=== PATIENT | male | born 1960 | race Caucasian/White ===

== ENCOUNTER 2020-12-18 15:21 | Emergency (ER) | payer BC, SELFPAY ==
[2020-12-18 15:22] VITALS: BP 119/78; PULSE 104; RESP 18; TEMP 36.8; O2SAT 98; BMI 37.2
--- NOTE | 2020-12-18 15:40 | EKG12_ITS ---
Test Reason : Blood Pressure : / mmHG Vent. Rate : 086 BPM Atrial Rate : 086 BPM P-R Int : 138 ms QRS Dur : 096 ms QT Int : 422 ms P-R-T Axes : 030 -55 064 degrees QTc Int : 504 ms Normal sinus rhythm Possible Left atrial enlargement Left anterior fascicular block Left ventricular hypertrophy Prolonged QT Abnormal ECG Confirmed by HERNAN MEIER, MATTHEW ([id number]), editorial clerk LYNDA RODRÍGUEZ ([id number]) on 12/20/2020 9:00:10 AM Referred By: REX Confirmed By:MATTHEW BECERRA MD
--- NOTE | 2020-12-18 15:40 | ED.VISSUMM ---
- ER Visit Summary Date of Service: 12/18/20 Chief Complaint: Nausea with generalized malaise and fatigue History of Present Illness: The patient is a 60 M Struve anxiety. Patient recently relocated from [place] to this area. Has been treated for a sinus infection after seeing a physician at the [facility]. States he just has not felt well. He denies any vomiting or diarrhea. Has had mild nausea. Subjectively felt like has had a fever. He denies any cough or shortness of breath. No abdominal pain or dysuria. Currently is on Augmentin twice daily for possible sinusitis. Physical Examination: Middle-aged male no acute distress vital signs stable afebrile. Pulse ox 90% on room air no signs hypoxia. HEENT exam frontal nicely sinuses are nontender. Moist mucous membranes. Posterior pharynx unremarkable. Right ear unremarkable left obscured by wax. Neck nontender. No lymphadenopathy. Lungs clear to auscultation bilaterally. Heart regular rhythm no murmur. Abdomen is soft and nontender normal bowel sounds no peritoneal signs. Patient is moving all 4 extremities. Calves are nontender without edema or cords. Neurologically is awake alert with no focal motor deficits. Back nontender. Test Results: Chest x-ray portable 1 view interpreted by myself shows no acute abnormality. Normal cardiac silhouette mediastinum. No infiltrate. Radiologist read the film and agrees. EKG normal sinus rhythm rate 86 no acute signs of GA or ischemia. CBC normal white count 9. Hemoglobin 15. No bands. Electrolytes unremarkable other than potassium of 3.0. Normal gap normal creatinine. Normal blood sugar. Liver enzymes normal. Repeat exam patient is doing well at 4:48 PM. He had I went over all his test results. Emergency Department Course and Treatment: Middle-aged male with some mild nausea and fatigue. Exam is basically benign. At least at this time I do not have a strong suspicion that he has a significant sinusitis. That may have improved with his antibiotic treatment. Due to his fatigue I am going to obtain screening labs. Treatment Plan: I instructed him he could stop his antibiotic. He may choose to finish it. Otherwise outpatient follow-up. Disposition: Discharge Impression: Acute fatigue uncertain etiology This note was generated with [employer] dictation software. It may contain incorrect words, spelling, and punctuation that were not noted in review of the chart prior to signing ED Disposition - Plan for ED Patient: Referrals: [facility] Doctor,Out of [Primary Care Provider] -
[2020-12-18 15:41] VITALS: BP 119/78; PULSE 104; RESP 18; TEMP 36.8; O2SAT 98
[2020-12-18 15:55] LABS: Absolute Lymphocyte Count 1.55 X10^3/uL (0.83-4.51); Absolute Neutrophil Count 6.6 X10^3/uL (2.0-7.7); Basophil# 0.04 X10^3/uL; Basophil% 0.4 % (0-1); Eosinophil# 0.51 X10^3/uL; Eosinophils% 5.4 % (0-5); Hematocrit 43.8 % (40-54); Lymphocyte # 1.55 X10^3/ul (4.0); Lymphocyte % 16.5 % (19-41); Mean Corp Hgb Conc 34.2 g/dL (32-36); Mean Corpuscular Hgb 29.4 pg (27.0-32.0); Mean Corpuscular Volume 85.9 fL (80-94); Mean Platelet Vol. 8.5 fl (6.2-12.0); Monocyte# 0.68 X10^3/uL; Monocyte% 7.3 % (0-10); NRBC Flagged by Analyzer 0 % (0-5); Neutrophil # 6.56 X10^3/uL (2.7-7.7); Neutrophil % 70.1 % (47-70); POSITIVE MORPHOLOGY YES; Platelet Count 273 K/mm3 (150-450); RBC Distribution Width CV 12.5 % (11.6-14.6); RBC Distribution Width SD 39.6 fl (35.1-43.9); White Blood Count 9.4 K/mm3 (4.4-11.0)
[2020-12-18 16:16] LABS: ALB/GLOB Ratio 0.7 RATIO (0.9-2.4); AST(SGOT) 24 U/L (15-37); Alanine Aminotransfer ALT/SGPT 34 U/L (16-61); Albumin, Serum 3.1 g/dL (3.2-5.0); Alkaline Phosphatase 67 U/L (45-117); Anion Gap 7 (5-15); BUN 15 mg/dL (7-18); Calcium,Total 8.6 mg/dL (8.5-10.1); Chloride 101 mmol/L (98-107); Creatinine, Serum 1.15 mg/dL (0.70-1.30); Differential Indicated SCAN CRITERIA MET; EST Glomerular Filtration Rate 69 mL/min (>60); Est Glom Filt Rate - Afr Amer 84 mL/min (>60); Estimated Creatinine Clearance 81.41 ml/min; Globulin 4.5 g/dL (2.2-4.2); Glucose 102 mg/dL (74-106); Protein, Total 7.6 g/dL (6.4-8.2); Sodium Level 137 mmol/L (136-145)
[2020-12-18 16:17] LABS: Differential Comment SCANNED; Reactive Lymphocyte 1+
--- NOTE | 2020-12-18 16:22 | RAD_ITS ---
STUDY: X-RAY CHEST REASON FOR EXAM: Male, 60 years old. weakness TECHNIQUE: Frontal view of the chest COMPARISON: None. FINDINGS: The lungs are clear and expanded. There is no demonstrated pleural abnormality. Normal size heart. Normal mediastinum and demi. Normal visualized pulmonary arteries. Normal visualized aortic arch and descending thoracic aorta. Normal visualized thoracic spine. Normal visualized ribs, clavicles, and shoulders. There is no demonstrated abnormality of the visualized soft tissue structures of the upper abdomen. RAD/Chest 1 View (Portable) IMPRESSION: Normal x-ray examination of the chest. Electronically Signed: Ro Ervin MD at 16:45 EDT Tel , Service support ,
--- NOTE | 2020-12-18 16:56 | ED.DEP ---
ED Disposition - Plan for ED Patient: Disposition: Home or Assisted Living Referrals: Dennis Marie MD [STAFF PHYSICIAN] - 1-2 Weeks Armida Riley MD [STAFF PHYSICIAN] - 1-2 Weeks Additional Instructions: Your exam and all your lab work, chest x-ray and EKG were normal today. Except your potassium was just a little low at 3.0. Use a multivitamin or increase your fruit and vegetable intake and your potassium should come up. Follow-up with one of the 2 local primary care physicians. Return if you are feeling worse. Your symptoms may be from the current antibiotic you are on Augmentin. I think it would be reasonable to stop it at this time.
[2020-12-18 17:12] VITALS: BP 145/95; PULSE 87; RESP 16; O2SAT 99
== END 2020-12-18 17:12 | disposition home or self-care (01) ==
LOC: ED 17:07
PROVIDERS: Emergency Provider Emergency Medicine
DX: R53.1 Weakness (principal); R53.81 Other malaise; F41.9 Anxiety disorder, unspecified; Z79.899 Other long term (current) drug therapy
CPT/HCPCS: 71045; 80053; 85025; 93005; 99283

== ENCOUNTER → 2021-01-03 15:33 | Outpatient (CLI) | payer BC, SELFPAY ==
[2020-12-18 15:22] VITALS: BMI 37.2
[2021-01-03 18:09] LABS: Absolute Lymphocyte Count 1.96 X10^3/uL (0.83-4.51); Absolute Neutrophil Count 3.2 X10^3/uL (2.0-7.7); Basophil# 0.03 X10^3/uL; Basophil% 0.5 % (0-1); Eosinophil# 0.27 X10^3/uL; Eosinophils% 4.5 % (0-5); Hematocrit 42.1 % (40-54); Lymphocyte # 1.96 X10^3/ul (4.0); Lymphocyte % 32.9 % (19-41); Mean Corp Hgb Conc 33.3 g/dL (32-36); Mean Corpuscular Hgb 29.5 pg (27.0-32.0); Mean Corpuscular Volume 88.6 fL (80-94); Mean Platelet Vol. 8.9 fl (6.2-12.0); Monocyte# 0.47 X10^3/uL; Monocyte% 7.9 % (0-10); NRBC Flagged by Analyzer 0 % (0-5); Neutrophil # 3.21 X10^3/uL (2.7-7.7); Platelet Count 254 K/mm3 (150-450); RBC Distribution Width CV 13.3 % (11.6-14.6); RBC Distribution Width SD 42.4 fl (35.1-43.9); Red Blood Count 4.75 M/mm3 (4.6-6.2)
[2021-01-03 18:27] LABS: ALB/GLOB Ratio 1.1 RATIO (0.9-2.4); AST(SGOT) 13 U/L (15-37); Alanine Aminotransfer ALT/SGPT 28 U/L (16-61); Albumin, Serum 3.7 g/dL (3.2-5.0); Alkaline Phosphatase 82 U/L (45-117); Anion Gap 7 (5-15); BUN 13 mg/dL (7-18); BUN/Creat Ratio 11.3 RATIO (10-20); Calcium,Total 9.1 mg/dL (8.5-10.1); Chloride 105 mmol/L (98-107); Creatinine, Serum 1.15 mg/dL (0.70-1.30); EST Glomerular Filtration Rate 69 mL/min (>60); Est Glom Filt Rate - Afr Amer 84 mL/min (>60); Globulin 3.4 g/dL (2.2-4.2); Glucose 131 mg/dL (74-106); Potassium 3.5 mmol/L (3.5-5.1); Protein, Total 7.1 g/dL (6.4-8.2); Sodium Level 139 mmol/L (136-145)
[2021-01-05 10:08] LABS: Hemoglobin A1c 5.4 % (3.8-5.6)
== END ==
PROVIDERS: PCP Family Medicine; Referring Provider Family Medicine; Visit Provider Family Medicine
DX: E66.9 Obesity, unspecified (principal); R73.09 Other abnormal glucose
CPT/HCPCS: 36415; 80053; 83036; 85025

== ENCOUNTER 2021-01-11 14:49 | Emergency (ER) | payer BC, SELFPAY ==
[2021-01-11 14:50] VITALS: BP 152/85; PULSE 105; RESP 15; TEMP 36.4; O2SAT 97; BMI 34.2
--- NOTE | 2021-01-11 15:25 | VDUE_ITS ---
Reason For Study: Swelling, PICC line Right Proximal Right jugular vein is spontaneous, widely patent, phasic, with no intraluminal echogenicity noted. PICC Line noted Rt distal Subclavian V no color flow noted, unable to assess with compression Rt AxillaryV is dilated and non compressible consistent with acute DVT Rt CephalicV from wrist to elbow is dilated and non compressible consistent with acute SVT Rt BasilicV appears partially compressible with thrombus around PICC line. Right Lower Arm Right radial vein is compressible. Right ulnar vein is compressible. Right Arm Right brachial vein is compressible. Patient Safety Prelim given to Dr. Buck. VL/Venous Duplex US, Unilateral Interpretation Summary Right upper extremity PICC line associated with superficial thrombophlebitis of the basilic vein with visible thrombus and acute deep venous thrombosis of the right axillary an d distal subclavian vein. Patent and compressible right jugular vein. Ordering Physician: Kelby Buck Referring Physician: Per Truong Performed By: She Trevino, KEYLA, RVT ?
--- NOTE | 2021-01-11 15:33 | ED.DCSUM_ITS ---
History of Present Illness Chief Complaint: Upper Extremity Injury Informant: Patient Narrative: 60-year-old male presents with concern for right upper extremity swelling. Patient has had a PICC line in place for 15 days to treat a spinal herpes infection. Has been on acyclovir. Was seen by his infectious disease physician today who noted that his right upper extremity is swollen. Patient states that his physician is okay to switch him to oral medication but wanted to get his arm checked out. Denies any fever, chills, numbness, tingling. Past Medical History - Allergies and Home Meds Allergies/Adverse Reactions: Allergies No Known Allergies Allergy (Verified 12/18/20 15:22) Primary Care Physician: Per Truong MD [Primary Care Provider] - Prior records reviewed: Yes Past Medical History: - - anxiety Surgical History: - - MRSA in right foot Lives: Spouse/ Significant Other Smoking Status: Current some day smoker Alcohol: Occasional Drugs: None Review of Systems General: Denies: Chills, Fever, Sweats Eyes: Denies: Visual changes - bilaterally, Diplopia ENT: Denies: Rhinorrhea, Sore throat Cardiovascular: Denies: Chest pain, Palpitations Respiratory: Denies: Dyspnea, Cough, Dyspnea on exertion Gastrointestinal: Denies: Abdominal pain, Nausea, Vomiting, Diarrhea, Melena, Hematochezia Genitourinary: Denies: Dysuria, Hematuria, Frequency Musculoskeletal: Reports: Swelling. Denies: Back pain, Extremity Pain Skin: Denies: Rash, Wounds Neurological: Denies: Headache, Weakness, Numbness Physical Exam Vital Signs/Narrative: Vital Signs Temp Pulse Resp BP Pulse Ox 01/11/21 14:50 97.5 F L 105 H 15 152/85 H 97 General: Well nourished, Well developed, No Acute Distress Head: Normocephalic, Atraumatic Eyes: Perrl, EOMI ENT: Moist mucous membranes, No rhinorrhea Neck: Supple, Nontender Cardiovascular: Regular rate, Regular rhythm, No murmurs Respiratory: No distress, CTA bilaterally, Chest nontender Abdomen: Soft, Nontender, Nondistended, Normal bowel sounds Back: Nontender, Normal Inspection Extremities: Nontender, - - Slightly edematoius RUE. PICC line in place without surrounding erythema. Skin: Normal color, No rash Neurological: Alert, Oriented x3, Cranial nerves II-XII grossly intact, Normal Strength, Normal Sensation Psychological: Normal affect, Normal Mood Diagnostic/Tx/Re-eval - Medical Decision Making Patient appears well and nontoxic. Right upper extremity DVT of the axillary vein with proximal subclavian involvement. Patient will be given Eliquis and t he PICC line will be removed. Will be placed on Eliquis and follow-up with primary care provider. Asked to return for new or worsening symptoms. Stable at time of discharge. Impression: 1. DVT right upper extremity ED Disposition - Plan for ED Patient: Disposition: Home or Assisted Living Instructions: Deep Vein Thrombosis Prescriptions: Apixaban [Eliquis] 5 mg PO BID #74 tablet Prescription Printed Referrals: Per Truong MD [Primary Care Provider] - 2 Days
[2021-01-11] MEDS: APIXABAN 5 MG TABLET 10 MG PO (17:23)
== END 2021-01-11 17:37 | disposition home or self-care (01) ==
PROVIDERS: Emergency Provider Emergency Medicine; PCP Family Medicine
DX: I82.621 Acute embolism and thrombosis of deep veins of right upper extremity (principal); I80.8 Phlebitis and thrombophlebitis of other sites; F17.200 Nicotine dependence, unspecified, uncomplicated
CPT/HCPCS: 93971; 99282

== ENCOUNTER → 2021-05-01 09:42 | Outpatient (CLI) | payer BC, SELFPAY ==
[2021-04-26 11:26] VITALS: BMI 34.2
--- NOTE | 2021-05-01 09:46 | US_ITS ---
INDICATION: SACRAL RADICULITIS EXAMINATION: Ultrasound US Post Void Residual Urine/Bladder TECHNIQUE: Haque scale and color doppler imaging was performed of the urinary bladder. COMPARISON: None. FINDINGS: No stones, masses, or wall thickening. Pre-void volume is 833. Post-void volume is 84. Post-void residual is 10%. Bilateral ureteral jets are identified. US/Post Void Residual Bladder IMPRESSION: Negative bladder ultrasound. Electronically Signed: Per Ramos DO at 11:21 EDT Tel , Service support ,
== END ==
PROVIDERS: PCP Family Medicine; Referring Provider Family Medicine; Visit Provider Family Medicine
DX: M54.18 Radiculopathy, sacral and sacrococcygeal region (principal)
CPT/HCPCS: 51798

== ENCOUNTER 2021-06-20 10:00 | Outpatient (RCR) | payer BC, SELFPAY ==
[2021-04-26 11:26] VITALS: BMI 34.2
--- NOTE | 2021-05-03 13:36 | HP.PTEVAL_ITS ---
Patient's Visit Information ZORAN HAYNES is a 61 year old M referred to Physical Therapy by Dr. Per Truong MD with a diagnosis of ELSBERG SYNDROME, SACRAL RADICULITIS. Date of Evaluation: 05/03/21 Physical Therapist: Vida Coley PT, Cert MDT - Visit Plan Frequency: 2-3x /Week Duration: 4-6 Weeks Plan: GAIT TRAINING WITH EMPHASIS ON SAFETY AND MECHANICS. FOCUS ON LLE STRETCHING AND L ANKLE STRETCHING AND STRENGTHEING. POSTURE CORRECTION/STRENGTHENING, INSTRUCTION IN APPROPRIATE BODY MECHANICS AND ACTIVITY MODIFICATIONS. DLS STARTING WITH A NEUTRAL SPINE PROGRESSING ROM TOLERATED. NINA LE ROM, STRETCHING AND STRENGTHENING. HEP INSTRUCTION. 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 A LOT OF WALKING. FACILITY IS ABOUT [place] [address]. Disability: NO. Present symptoms: I DON'T REALLY HAVE PAIN I JUST HAVE A LOSS OF MUSCLE STRENGTH IN THE BACK OF MY LEGS. STATES HE CAN'T WALK ON HIS L HEEL AND HE RANDOMLY STUMBLES. STATES AT TIMES IT FEELS LIKE HE IS WALKING ON ICE. LEFT THIGH FEELS SUPER TIGHT AND CAN'T PUT SOCK ON LEFT FOOT. Present since: SINCE NOVEMBER 2020. IT WAS REALLY BAD AND BOTH LEGS IN THE BEGINNING WITH A LOT OF STUMBLING. THINGS GOT BETTER AND WENT OFF ANTIBIOTICS AND THEN IT STARTED TO COME BACK ABOUT 6 WEEKS AGO. ANOTHER ROUND OF ANTIBIOTICS AND EVERYTHING FEELS MUCH BETTER EXCEPT THIGHNESS IN LEFT THIGH AND NO FEELING IN LEFT BUTTOCK NO FEELING IN GROIN AREA. Commenced as a result of: INFECTION. PATIENT THINKS THE INFECTION WENT YEARS UNTREATED. STATES HE WILL PROBABLY BE ON ANTIBIOTICS FOR LIFE. WAS IN THE HOSPITAL IN NOVEMBER FOR A WEEK AND ALSO A WEEK LAST YEAR. Symptoms at onset: FLU LIKE SYMPTOMS. Disturbed sleep: SOMETIMES - MUSCLE TIGHTNESS L THIGH. Previous history/Previous treatment: HAVE TRIED MUSCLE RELAXERS BUT THEY DO NOT HELP. MASSAGE HELPS. ANTIBIOTICS. NO BACK SURGERY. NO PHYSICAL THERAPY. NO INJECTIONS. NO CHIROPRACTOR FOR YEARS. TRIED GABAPENTIN BUT STOPPED THAT. Coughing/sneezing/straining: NEGATIVE. Gait: A LOT OF FOOT PAIN. PAIN IN BOTH FEET. WEARS ORHTOTICS. FOOT PAIN X 15 YEARS AGO AND HAS HAD RIGHT FOOT SX. Difficulty initiating urinatin: YES. US SATURDAY THIS WEEK AND GOT GOOD RESULTS. NO LOSS OF BOWEL OR BLADDER CONTROL NOW. NO INCONTINENCE. DID HAVE INCONTINENCE ABOUT A MONTH AFTER FLU LIKE SX'S STARTED AND WAS CONTRIBUTING FACTOR TO GOING TO THE HOSPITAL. Accidents: NO. Unexplained weight loss: NO. Imaging: DECEMBER 2020 A LOT OF X-RAYS AND 3 OR 4 MRI'S OF LOW BACK. RECENT MRI ORDERED BY INFECTIOUS DOCTOR BUT NOT COMPLETED. NEUROLOGY WILBERTO'T PENDING END OF MAY 2021. PMH: ANXIETY. R FOOT SX. OTHER: I HAVE SOME APPREHENSION ABOUT PT BECAUSE UNTIL I HAVE BETTER CONTROL THROUGH MY NERVES I DON'T KNOW WHAT CAN BE ACHIEVED IN PHYSICAL THERAPY. OTHER: PATIENT REPORTS HE DOES NOT HAVE ANY PHYSICIAN RESTRICTIONS. HAS HAD SOME MILD FALLS WHEN GETTING OFF BALANCE BUT NO INJURIES FROM THE FALLS. - Objective Sitting/Standing Posture: POOR. Lordosis: NORMAL TO REDUCED. Lateral shift: NO. Relevant shift: N/A. Active Correction of posture: NE. Other Observations: INDEP TRANSFER SIT TO STAND WITHOUT UE ASSIST BUT DIFFICULT. Motor deficit: RLE: 5/5 EXCEPT HIP 4/5. LLE: 5/5 EXCEPT HIP 4-/5, KNEE FLEX 4-/5, KNEE EXT 4/5, ANKLE DORSIFLEX 2/5, PLANTAR FLEXION 4/5. PATIENT IS ABLE TO WALK ON HIS TOES BUT NOT ON HIS L HEEL. Sensory deficit: DECREASED L LE LATERAL LEG LIGHT TOUCH SENSATION COMPARED TO RIGHT AND PATIENT REPORTS SADDLE ANESTHESIA. ROM deficit: TIGHT NINA HIP FLEXORS, HS'S AND L GASTROC SOLEUS COMPLEX. Reflexes: LE HYPER-RELFEXIA L > RIGHT. DECREASED NINA LE ROM L>R. Dural Signs: NEGATIVE RIGHT LE. POSITIVE LEFT LE. Lumbar mvmt loss: flex - MOD. ext - MOD. R SG - MIREYA. L SG - MOD. PATIENT REPORTS A LOT OF INCREASED LLE TIGHTNESS WITH LUMBAR FLEXION ROM TESTING. Core strength: POOR. Palpation: NO ACUTE LUMBOSACRAL TENDERNESS. TREATMENT: NEUROMUSCULAR REEDUCATION - RETRAINING OF MVMT AND POSTURE FOR SITTING, LYING AND STANDING ACTIVITIES. OTHER: ELSBURG SYNDROME: Elsberg syndrome (ES) is a presumed infectious syndrome consisting of acute or subacute bilateral lumbosacral radiculitis, often accompanied by myelitis confined to the lower spinal cord, and is frequently a manifestation of reactivation, or occasionally, primary herpes simplex virus 2 (HSV2) infection. - Balance/Special Test Scores Oswestry Low Back Score: 0 - Goals Goal 1:: INDEP AND SAFE GAIT ON LEVEL SURFACES AND UP AND DOWN STEPS WITH LEAST ASSISTIVE DEVICES OR BRACING. Goal Time Frame: 4-6 Weeks Goal 2:: IMPROVE NINA LE FUNCTIONAL ROM TO EASE ADLS SUCH DRESSING AND DONING/DOFFING LEFT SHOE AND SOCK. Goal Time Frame: 4-6 Weeks Goal 3:: IMPROVE TRUNK AND NINA LE FUNCTIONAL STRENGTH TO EASE ADLS Goal Time Frame: 4-6 Weeks Goal 4:: PATIENT WILL BE INDEP WITH A HEP FOR CONTINUED IMPROVEMENT ONCE FORMAL PHYSICAL THERAPY CONCLUDES. - Anticipated Interventions Patient/Client Instruction: Educate patient on: Condition, Plan of Care, Risk Factors For the Purpose of:: To improve self management Therapeutic Exercise to Include: Strength training, Balance training, Body mechanics, Postural training, Flexibilty training, Gait and locomotor training, Neuromotor development, In an aquatic setting, Dynamic Lumbar Stabilization For the Purpose of:: To decrease pain, To improve muscle performance and motor function, To increase tolerance to activity/condition/position, To improve ability of physical actions for home/community/work/leisure, To improve gait and locomotor functions Thank you for the opportunity to evaluate your patient. For Medicare and Medicare HMO plans, please review the plan of care and approve it. It will need to be FAXED BACK to us at [phone] for Medicare purposes. For Medicare only, by signing this I certify the plan of care. Please let me know if there are questions or concerns regarding this plan of care. Physician Signature: Date:
--- NOTE | 2021-06-20 11:54 | HP.PTDCSUM ---
It has been my pleasure to treat ZORAN HAYNES referred by Dr. Per Truong MD, with the diagnosis of ELSBERG SYNDROME, SACRAL RADICULITIS for a total of 8 visit(s). Discharge Date: 06/20/21 Please see the following information for a summary of their discharge status. Subjective: REPORTS HE CAN PUT HIS LEFT SOCK ON NOW AND THAT WAS IMPOSSIBLE BEFORE STARTING PT. STATES HIS LEFT LEG FEELS LOOSER. PATIENT REPORTS HE IS READY TO STOP PT AND CONTINUE HIS HEP. BROUGHT HIS HOME INSTRUCTIONS WITH HIM TODAY SO WE CAN GO OVER EVERYTHING. PATIENT REPORTS HE IS PLEASANTLY SURPRISED AT HOW MUCH THERAPY HAS HELPED HIM. LLE Pain Intensity (Out of 10): 5 % Improvement: 80 Objective/Function: PATIENT WAS SEEN TODAY FOR RE-ASSESSMENT OF PROGRESS TOWARD THE SET PT GOALS AND THE NEED FOR FURTHER PHYSICAL THERAPY VS READINESS FOR DISCHARGE. PATIENT HAS DONE REALLY WELL WITH PHYSICAL THERAPY AND WOULD LIKE TO CONTINUE INDEP'LY NOW. UPON EXAM TODAY: INDEP TRANSFER SIT TO STAND WITHOUT UE ASSIST OR DIFFICULTY TODAY. Motor deficit: RLE: 5/5 LLE: 5/5 EXCEPT ANKLE DORSIFLEX 2/5. PATIENT IS ABLE TO WALK ON HIS TOES BUT NOT ON HIS L HEEL. Sensory deficit: NINA LE LIGHT TOUCH SENSATION IS GROSSLY INTACT AND SYMMETRICAL NOW EXCEPT LEFT FOOT. STATES HE THINKS THE NUMBESS IN HIS SADDLE REGION IS GETTING A LITTLE BETTER. ROM deficit: TIGHT NINA HIP FLEXORS, HS'S AND GASTROC SOLEUS COMPLEX'S. Reflexes: LE HYPER-RELFEXIA L > RIGHT. Dural Signs: NEGATIVE NINA LE'S. Lumbar mvmt loss: flex - MIN. ext - MOD. R SG - MOD. L SG - MOD. PATIENT DENIES INCREASED PAIN OR PULLING WITH LUMBAR ROM TESTING TODAY AT EVAL. Core strength: POOR. Palpation: NO ACUTE LUMBOSACRAL TENDERNESS Goal 1:: INDEP AND SAFE GAIT ON LEVEL SURFACES AND UP AND DOWN STEPS WITH LEAST ASSISTIVE DEVICES OR BRACING. Goal Progress: Goal Met Goal 2:: IMPROVE NINA LE FUNCTIONAL ROM TO EASE ADLS SUCH DRESSING AND DONING/DOFFING LEFT SHOE AND SOCK. Goal Progress: Goal Met Goal 3:: IMPROVE TRUNK AND NINA LE FUNCTIONAL STRENGTH TO EASE ADLS Goal Progress: Goal Met Goal 4:: PATIENT WILL BE INDEP WITH A HEP FOR CONTINUED IMPROVEMENT ONCE FORMAL PHYSICAL THERAPY CONCLUDES. Goal Progress: Goal Met Plan: D/C TO HEP. PATIENT AGREEABLE. WILBERTO'TS PENDING WITH PCP TOMORROW - DR. LEWIS. NEUROLOGIST 06/26/21 If there are questions or concerns regarding this patient's physical therapy, please feel free to call me at [phone]. Thank you for the referral of this patient. Sincerely, Vida Coley, PT, Cert MDT Balance/Gait/Functional tests - Balance/Special Test Scores Oswestry Low Back Score: 0
== END 2021-06-20 19:00 | disposition home or self-care (01) ==
LOC: PT 10:00
PROVIDERS: PCP Family Medicine; Referring Provider Family Medicine; Visit Provider Family Medicine
DX: G83.4 Cauda equina syndrome (principal); M53.3 Sacrococcygeal disorders, not elsewhere classified
CPT/HCPCS: 97110; 97162; 97164; 97530

== ENCOUNTER → 2021-07-12 10:10 | Outpatient (CLI) | payer BC, SELFPAY ==
--- NOTE | 2021-07-12 10:11 | MRI_ITS ---
STUDY: MRI LUMBAR SPINE WITH AND WITHOUT CONTRAST REASON FOR EXAM: Male, 61 years old. Myelopathy TECHNIQUE: Standardized fat and water weighted pulse sequences were obtained in the sagittal and axial planes. IV 25 cc dotarem was administered for the contrast portion of the examination. COMPARISON: None FINDINGS: Normal lumbar lordosis. There is no substantial scoliosis. Normal conus medullaris that terminates at the L1. L1-2: There is mild disc space narrowing and endplates spondylosis mild disc bulge and facet arthropathy with mild central canal stenosis. Mild right and mild left foraminal stenosis. L2-3: There is minimal disc space narrowing and endplates spondylosis. Mild disc bulge and facet arthropathy without significant central canal stenosis. Mild right and mild left foraminal stenosis. L3-4: There is mild disc space narrowing and endplates spondylosis mild disc bulge and facet arthropathy with mild central canal stenosis. Mild right and mild left foraminal stenosis. Minimal grade 1 anterolisthesis. L4-5: There is moderate disc space narrowing and endplates spondylosis mild disc osteophyte complex and facet arthropathy with with mild central canal stenosis. Moderate right and mild left foraminal stenosis. L5-S1: There is moderate disc space narrowing and endplates spondylosis moderate disc osteophyte complex and facet arthropathy with mild central canal stenosis. Mild right and moderate left foraminal stenosis. Normal visualized sacral ala. MRI/Spine Lumbar W/WO Contrast IMPRESSION: L4/L5: Moderate right foraminal stenosis. L5/S1: Moderate left foraminal stenosis. Electronically Signed: Martin Euceda MD at 13:01 EDT Tel , Service support ,
== END ==
PROVIDERS: PCP Family Medicine; Referring Provider Psychiatry & Neurology Neurology; Visit Provider Psychiatry & Neurology Neurology
DX: B00.82 Herpes simplex myelitis (principal); G83.4 Cauda equina syndrome; M21.372 Foot drop, left foot; M62.838 Other muscle spasm; M48.061 Spinal stenosis, lumbar region without neurogenic claudication
CPT/HCPCS: 72158; A9575

== ENCOUNTER → 2022-04-12 | Outpatient (CLI) | payer BC, SELFPAY ==
[2022-04-12 18:49] LABS: PSA,Total - Annual Screen 0.34 ng/mL (0.00-4.00)
== END | disposition home or self-care (01) ==
LOC: MFPLAB 16:53
PROVIDERS: PCP Family Medicine; Referring Provider Family Medicine; Visit Provider Family Medicine
DX: Z12.5 Encounter for screening for malignant neoplasm of prostate (principal)
CPT/HCPCS: 36415; 84153; G0103

== ENCOUNTER → 2022-11-22 | Outpatient (CLI) | payer OTHER, SELFPAY ==
[2022-11-22 13:11] LABS: AST(SGOT) 28 U/L (15-37); Alanine Aminotransfer ALT/SGPT 34 U/L (16-61); Albumin, Serum 3.6 g/dL (3.2-5.0); Alkaline Phosphatase 103 U/L (45-117); Anion Gap 5 (5-15); BUN 23 mg/dL (7-18); BUN/Creat Ratio 22.3 RATIO (10-20); Calcium,Total 9.2 mg/dL (8.5-10.1); Chloride 104 mmol/L (98-107); Cholesterol 213 mg/dL (200); Creatinine, Serum 1.03 mg/dL (0.70-1.30); EST Glomerular Filtration Rate 78 mL/min (>60); Est Glom Filt Rate - Afr Amer 95 mL/min (>60); Globulin 3.5 g/dL (2.2-4.2); Glucose 88 mg/dL (74-106); High Density Lipoprotein 39 mg/dL; Potassium 3.8 mmol/L (3.5-5.1); Protein, Total 7.1 g/dL (6.4-8.2); Sodium Level 138 mmol/L (136-145); Thyroid Stim Hormone (TSH) 1.21 uIU/mL (0.358-3.74); Triglycerides 151 mg/dL; Very Low Density Lipoprotein 30 mg/dL (5-40)
[2022-11-22 13:58] LABS: Absolute Lymphocyte Count 1.87 X10^3/uL (0.83-4.51); Absolute Neutrophil Count 3.1 X10^3/uL (2.0-7.7); Basophil# 0.03 X10^3/uL; Basophil% 0.5 % (0-1); Eosinophil# 0.38 X10^3/uL; Eosinophils% 6.3 % (0-5); Hematocrit 47.2 % (40-54); Hemoglobin 15.5 g/dL (13.0-16.5); Lymphocyte # 1.87 X10^3/ul (0.83-4.51); Lymphocyte % 31.1 % (19-41); Mean Corp Hgb Conc 32.8 g/dL (32-36); Mean Corpuscular Hgb 30.6 pg (27.0-32.0); Mean Corpuscular Volume 93.3 fL (80-94); Mean Platelet Vol. 9.3 fl (6.2-12.0); Monocyte# 0.64 X10^3/uL; Monocyte% 10.6 % (0-10); NRBC Flagged by Analyzer 0 % (0-5); Neutrophil # 3.09 X10^3/uL (2.7-7.7); Neutrophil % 51.3 % (47-70); Platelet Count 273 K/mm3 (150-450); RBC Distribution Width CV 12.8 % (11.6-14.6); RBC Distribution Width SD 43.4 fl (35.1-43.9); Red Blood Count 5.06 M/mm3 (4.6-6.2)
== END | disposition home or self-care (01) ==
LOC: MFPLAB 11:21
PROVIDERS: PCP Family Medicine; Referring Provider Family Medicine; Visit Provider Family Medicine
DX: I10 Essential (primary) hypertension (principal)
CPT/HCPCS: 36415; 80053; 80061; 84443; 85025

== ENCOUNTER → 2022-12-27 | Outpatient (CLI) | payer OTHER, SELFPAY ==
--- NOTE | 2022-12-27 18:21 | US_ITS ---
STUDY: ULTRASOUND - URINARY BLADDER REASON FOR EXAM: Male, 62 years old. URINARY RETENTION TECHNIQUE: Ultrasound evaluation of the urinary bladder was performed with real-time and static kendrick-scale imaging. COMPARISON: None. FINDINGS: There is no right UVJ calculus. There is a visualized right ureteral jet. There is no left UVJ calculus. There is a visualized left ureteral jet. The distended volume of the urinary bladder is 218.91 ml. The empty volume of the urinary bladder is 68.64 ml. The bladder wall is within normal limits. The bladder wall measures 3 mm. There is no demonstrated bladder wall mass lesion. There are no demonstrated bladder calculi. US/Post Void Residual Bladder IMPRESSION: Small postvoid residual. Electronically Signed: Juan Jose Burnham MD at 14:16 EDT ,
== END | disposition home or self-care (01) ==
PROVIDERS: PCP Family Medicine; Referring Provider Family Medicine; Visit Provider Family Medicine
DX: R33.9 Retention of urine, unspecified (principal)
CPT/HCPCS: 51798

== ENCOUNTER 2023-01-12 11:55 | Emergency (ER) | payer OTHER, SELFPAY ==
[2023-01-12 11:56] VITALS: BP 144/83; PULSE 83; RESP 16; TEMP 36.6; O2SAT 100; BMI 35.9
--- NOTE | 2023-01-12 12:19 | CT_ITS ---
STUDY: CT ABDOMEN AND PELVIS WITH CONTRAST REASON FOR EXAM: Male, 62 years old. Trauma -- IV PO Contrast RADIATION DOSAGE (If Supplied By Facility): CTDIvol = ( ) mGy, DLP = ( ) mGycm TECHNIQUE: Transaxial images were obtained from the dome of the diaphragm to the symphysis pubis without oral contrast. IV 100mL Isovue-300 was administered. Sagittal and coronal images were reconstructed. This study was timed stamped at 1:02 PM and sent for radiographic interpretation at 1:46 PM Individualized dose optimization techniques were used for this CT. COMPARISON: None. FINDINGS: The visualized lung bases are unremarkable. The visualized portions of the heart are within normal limits. Normal liver. Normal gallbladder and extrahepatic biliary system. Normal spleen. Normal pancreas. Normal bilateral adrenal glands. Normal right kidney. Normal left kidney. There is hypertrophy of the perinephric fat. Normal visualized stomach. Normal small intestine. There is a [id number] amount of stool within the proximal colon. Within the descending colon and sigmoid is decompressed appearance of the bowel loops. There are a few diverticula present without visualized diverticulitis. The appendix is visualized and appears normal. There is minimal calcification of the infrarenal aorta. Normal inferior vena cava. Normal retroperitoneum. Normal urinary bladder. Normal visualized prostate gland. There is edema in the right gluteal superficial soft tissues and the right gluteus muscle. There are diffuse degenerative changes of the visualized lumbar spine. There is multilevel spondylosis especially in the lower thoracic spine. There is disc space narrowing spondylosis. There is right lateral disc osteophyte at each level. At the level of L1-L2 there is slight retrolisthesis is a right lateral disc osteophyte mild neural foramina narrowing minimal central stenosis. At L2-3 there is a broad disc osteophyte mild neural foramina narrowing minimal central stenosis. At L3-L4 there is minimal disc space narrowing and broad disc osteophyte right greater than left with right neural foramina narrowing. There is facet arthropathy mild central stenosis. At L4-L5 there is a broad disc osteophyte moderate neural foramina narrowing mild to moderate central stenosis. There is a small central disc bulge at the level of L5-S1 there is moderate neural foramina narrowing without central stenosis. There is degenerative change of the SI joints. The bilateral inferior superior pubic rami are intact. Bilateral proximal femurs appear to be intact. There is prominent bilateral gynecomastia. CT/Abdomen/Pelvis WITH Contrast IMPRESSION: Bilateral gynecomastia. No visualized intra-abdominal injury. Nonspecific bowel gas pattern. No appendicitis. Soft tissue edema right gluteal soft tissues and in the right gluteal muscle. No visualized fracture. There is multilevel degenerative change of the thoracolumbar spine without evidence of acute loss of height or alignment. Electronically Signed: Siobhan Garcia MD at 14:28 EDT Reading Location ID and State: [facility] / [place] Tel , Service support ,
--- NOTE | 2023-01-12 12:32 | EX.ED.DYSGE1 ---
HPI History of Present Illness Chief Complaint: General Illness Narrative Narrative: H&P by nurse practitioner done separately on individual chart. This was reviewed. Therefore, will not repeat complete history and physical. [facility] Medical History (Updated 01/12/23 @ 17:[address] Khanh Pascual MD) Back problem HTN (hypertension) Neuropathy Home Medications sertraline 50 mg tablet 50 mg PO DAILY 06/26/21 [History Last Taken Unknown] baclofen 10 mg tablet 10 mg PO BID PRN muscle spasm/pain #180 tabs 12/04/21 [Rx Last Taken Unknown] valacyclovir 1 gram tablet 1,000 mg PO BID #180 tabs 12/19/21 [Rx Last Taken Unknown] hydrocodone-acetaminophen 5-325mg 5mg-325mg 1 tab PO Q4H PRN PRN Pain 3 days #10 TABLETS 01/12/23 [Rx Last Taken Unknown] ondansetron 4 mg disintegrating tablet 4 mg PO Q8H PRN PRN Nausea #10 tabs 01/12/23 [Rx Last Taken Unknown] Allergy/AdvReac Type Severity Reaction Status Date / Time No Known Allergies Allergy Verified 01/12/23 11:56 Social History Smoking Status: Current some day smoker tobacco type: cigars per week: 3 Tobacco: How many years used: 5 second hand exposure: No alcohol intake: current alcohol intake frequency: a few times a week substance use type: does not use EXAM Physical Exam Const Vital Signs: 01/12/23 11:56 01/12/23 12:43 Temperature 97.8 F Temperature Source Temporal Pulse Rate 83 Respiratory Rate 16 Respiratory Effort Normal Non-Labored Blood Pressure 144/83 H Blood Pressure Mean 103 Pulse Ox 100 Oxygen Delivery Method Room Air MDM MDM MDM Narrative Medical decision making narrative: I have personally performed a face to face assessment of the patient and have reviewed the WILBERTO Note. I performed a substantive portion of the visit including all aspects of the following. My richardson findings include: History is remarkable for injury that occurred yesterday. Was pinned by machine. He complains of pain in the right flank area, right buttocks and left buttocks and lower abdomen. He states she is more gassy today than yesterday or normal. He denies blood in his urine. He denies shortness of breath. He does report injury to his left forearm. He states he has reactive range of motion without pain. He denies paresthesia, anesthesia motors. Exam is there is soft tissue swelling noted over the left elbow. Is no pain the patient over the lateral medial epicondyle, olecranon process or radial head. Axillary, median, radial and ulnar function intact. Patient has minimal suprapubic discomfort. There is right CVA tenderness noted as well as tenderness in the right buttocks with significant bruising noted right buttocks compared to left. Medical Decision Making CT of the abdomen pelvis with IV contrast was obtained to evaluate for renal injury as well as lower pelvic organ injuries. CBC was obtained to assess H&H and BMP to assess renal function. Patient had a normal BUN and creatinine and GFR October of this year. GFR was 78. Other additions or changes: [None] Lab Data Attestation: I reviewed the patient's lab results. Lab results narrative: CBC is unremarkable comprehensive metabolic panel is remarkable for mild hypokalemia, 3.2. Function is normal. UA is negative. Labs: Laboratory Results - last 24 hr 01/12/23 01/12/23 01/12/23 12:20 12:20 12:37 WBC 8.3 RBC 4.49 L Hgb 14.1 Hct 40.2 MCV 89.5 MCH 31.4 MCHC 35.1 RDW Std Deviation 39.9 RDW Coeff of Mikie 12.3 Plt Count 238 MPV 8.6 Immature Gran % (Auto) 0.100 Neut % (Auto) 65.5 Lymph % (Auto) 20.0 [place] % (Auto) 10.9 H Eos % (Auto) 3.1 Baso % (Auto) 0.4 Absolute Neuts (auto) 5.4 Absolute Lymphs (auto) 1.66 Nucleated RBC % 0 Sodium 137 Potassium 3.2 L Chloride 104 Carbon Dioxide 28.0 Anion Gap 5 BUN 22 H Creatinine 1.16 Estim Creat Clear Calc 76.53 Est GFR (MDRD) Af Amer 82 Est GFR (MDRD) Non-Af 68 BUN/Creatinine Ratio 19.0 Glucose 126 H Calcium 9.4 Total Bilirubin 0.40 AST 29 ALT 33 Alkaline Phosphatase 93 Total Protein 7.0 Albumin 3.6 Globulin 3.4 Albumin/Globulin Ratio 1.1 Lipase 30 Urine Color Yellow Urine Clarity Clear Urine pH 6.5 Ur Specific [place] 1.010 Urine Protein Negative Urine Glucose (UA) Normal Urine Ketones Negative Urine Occult Blood Negative Urine Nitrite Negative Urine Bilirubin Negative Urine Urobilinogen Normal Ur Leukocyte Esterase Negative Urine RBC 0 SEEN Urine WBC 0 SEEN Ur Squamous Epith Cells 0 SEEN Urine Bacteria 0 SEEN Urine Mucus 0 SEEN Radiography Chest X-Ray - ED: - (CT of the abdomen pelvis with IV contrast reviewed. There is no evidence of splenic or liver injury. There is no evidence of renal contusion or fracture. There is evidence of blood right buttocks greater than left. There is no appreciable pelvic fracture noted. Awaiting formal read by radiologi) Diagnostic Testing: Clinical Impression(s) from Imaging Studies Abdomen/Pelvis CT 01/12/23 12:19 IMPRESSION: Bilateral gynecomastia. No visualized intra-abdominal injury. Nonspecific bowel gas pattern. No appendicitis. Soft tissue edema right gluteal soft tissues and in the right gluteal muscle. No visualized fracture. There is multilevel degenerative change of the thoracolumbar spine without evidence of acute loss of height or alignment. Electronically Signed: Siobhan Garcia MD at 14:28 EDT Reading Location ID and State: [facility] / [place] Tel , Service support , Discharge Plan Triage Chief Complaint: General Illness ED Midlevel Provider: Adrian Jiménez ED Provider: Khanh Pascual Dx/Rx/DC Orders Clinical Impression: Lumbar contusion, Hematoma, Abdominal wall contusion, Contusion of flank Instructions: ED Back Contusion, ED Hematoma Prescriptions: New hydrocodone-acetaminophen 5-325 mg tablet 1 tab PO Q4H PRN PRN (Reason: Pain) 3 Days Qty: 10 0RF ondansetron 4 mg tablet,disintegrating 4 mg PO Q8H PRN PRN (Reason: Nausea) Qty: 10 0RF No Action sertraline 50 mg tablet 50 mg PO DAILY baclofen 10 mg tablet 10 mg PO BID PRN (Reason: muscle spasm/pain) Qty: 180 0RF valacyclovir 1 gram tablet 1,000 mg PO BID Qty: 180 0RF Primary Care Provider: Per Truong Referrals: Per Truong MD [Primary Care Provider] - Activity Restrictions/Additional Instructions: Please continue to ice Perform gentle stretching. Disposition Disposition: Home, Self Care Discharge Date/Time: 01/12/23 14:57
[2023-01-12 12:41] LABS: Absolute Lymphocyte Count 1.66 X10^3/uL (0.83-4.51); Absolute Neutrophil Count 5.4 X10^3/uL (2.0-7.7); Basophil# 0.03 X10^3/uL; Basophil% 0.4 % (0-1); Eosinophil# 0.26 X10^3/uL; Eosinophils% 3.1 % (0-5); Hematocrit 40.2 % (40-54); Hemoglobin 14.1 g/dL (13.0-16.5); Lymphocyte # 1.66 X10^3/ul (0.83-4.51); Mean Corp Hgb Conc 35.1 g/dL (32-36); Mean Corpuscular Hgb 31.4 pg (27.0-32.0); Mean Corpuscular Volume 89.5 fL (80-94); Mean Platelet Vol. 8.6 fl (6.2-12.0); Monocyte% 10.9 % (0-10); NRBC Flagged by Analyzer 0 % (0-5); Neutrophil # 5.42 X10^3/uL (2.7-7.7); Neutrophil % 65.5 % (47-70); Platelet Count 238 K/mm3 (150-450); RBC Distribution Width CV 12.3 % (11.6-14.6); RBC Distribution Width SD 39.9 fl (35.1-43.9); Red Blood Count 4.49 M/mm3 (4.6-6.2); White Blood Count 8.3 K/mm3 (4.4-11.0)
[2023-01-12 12:43] LABS: Bacteria 0 SEEN /hpf (None Seen); Mucous, Urine 0 SEEN /hpf (<or=2+); Red Blood Cells-Urine 0 SEEN /hpf (0-5); Squamous Epithelial Cells - UA 0 SEEN /hpf (0-5); White Blood Cells 0 SEEN /hpf (0-5)
[2023-01-12 12:45] LABS: Color, Urine Yellow (Yellow); Glucose, Dipstick Normal (Normal); Ketone-Dipstick Negative (Negative); Leukocyte Esterase-Dipstick Negative /ul (Negative); Nitrite-Dipstick Negative (Negative); Occult Blood-Urine Negative /ul (Negative); Protein-Dipstick Negative (Negative); Urine Bilirubin Dipstick Negative (Negative); Urine Clarity Clear (Clear); Urine Urobilinogen Normal (Normal); Urine pH 6.5 (5.0 - 8.0)
[2023-01-12 12:51] LABS: ALB/GLOB Ratio 1.1 RATIO (0.9-2.4); AST(SGOT) 29 U/L (15-37); Alanine Aminotransfer ALT/SGPT 33 U/L (16-61); Albumin, Serum 3.6 g/dL (3.2-5.0); Alkaline Phosphatase 93 U/L (45-117); Anion Gap 5 (5-15); BUN 22 mg/dL (7-18); Calcium,Total 9.4 mg/dL (8.5-10.1); Chloride 104 mmol/L (98-107); Creatinine, Serum 1.16 mg/dL (0.70-1.30); EST Glomerular Filtration Rate 68 mL/min (>60); Est Glom Filt Rate - Afr Amer 82 mL/min (>60); Estimated Creatinine Clearance 76.53 ml/min; Globulin 3.4 g/dL (2.2-4.2); Glucose 126 mg/dL (74-106); Lipase 30 U/L (13-75); Potassium 3.2 mmol/L (3.5-5.1); Sodium Level 137 mmol/L (136-145)
--- NOTE | 2023-01-12 14:37 | EX.ED.DYSGE1 ---
HPI <GIULIA Vasquez - Last Filed: 01/12/23 14:47> History of Present Illness Chief Complaint: General Illness Narrative Narrative: Patient is a 62-year-old male with history of cauda equina syndrome with ongoing paresthesias down his lower extremities, arthritis, obesity who presents to the emergency department after an accident at work that occurred yesterday. Patient works in a machine shop, he was struck in the lower back upper buttocks, flung forward and struck his lower abdomen. In his left arm. Patient states his left arm, buttocks are sore however okay, patient complains of generalized abdominal pain, feeling worse today. He denies any blood in stool or vomit. Patient states that he is worsening pain with movement. He is here because he is concerned secondary to the trauma he endured yesterday. He denies any other injury. Denies any pain to his lower extremities. [facility] <GIULIA Vasquez - Last Filed: 01/12/23 14:47> [facility] Medical History (Updated 01/12/23 @ 17:[address] Khanh Pascual MD) Back problem HTN (hypertension) Neuropathy Home Medications sertraline 50 mg tablet 50 mg PO DAILY 06/26/21 [History Last Taken Unknown] baclofen 10 mg tablet 10 mg PO BID PRN muscle spasm/pain #180 tabs 12/04/21 [Rx Last Taken Unknown] valacyclovir 1 gram tablet 1,000 mg PO BID #180 tabs 12/19/21 [Rx Last Taken Unknown] hydrocodone-acetaminophen 5-325mg 5mg-325mg 1 tab PO Q4H PRN PRN Pain 3 days #10 TABLETS 01/12/23 [Rx Last Taken Unknown] ondansetron 4 mg disintegrating tablet 4 mg PO Q8H PRN PRN Nausea #10 tabs 01/12/23 [Rx Last Taken Unknown] Allergy/AdvReac Type Severity Reaction Status Date / Time No Known Allergies Allergy Verified 01/12/23 11:56 Social History Smoking Status: Current some day smoker tobacco type: cigars per week: 3 Tobacco: How many years used: 5 second hand exposure: No alcohol intake: current alcohol intake frequency: a few times a week substance use type: does not use ROS <GIULIA Vasquez - Last Filed: 01/12/23 14:47> ROS ED ROS Narrative Constitutional: Negative for fever, chills, weight loss, weakness Eyes: Negative for vision loss, vision change, double vision ENT: Negative for any sore throat, ear pain, congestion Cardiovascular: Negative for any chest pain, tightness, palpitations Respiratory: Negative for any cough, sputum production, hemoptysis, dyspnea, dyspnea on exertion, orthopnea Gastrointestinal: Negative for any vomiting, diarrhea, constipation, blood in stool, blood in vomit. Positive for abdominal pain, nausea : Negative for any urinary frequency, dysuria, retention, blood in urine Muscle skeletal: Negative for any muscle joint pain, stiffness, myalgias, arthralgias, neck pain. Positive for back pain, buttock pain, left arm pain Neurological: Negative for any headache, syncope, numbness or tingling, dizziness Skin: Negative for any rashes, lumps, itching, abrasions, lacerations Psychiatric: Negative for any depression, anxiety, stress, suicidal ideation, homicidal ideation Hematologic: Negative for any easy bruising, excessive bruising, easy bleeding Allergies: Negative for any eczema, hives, rash EXAM <GIULIA Vasquez - Last Filed: 01/12/23 14:47> Physical Exam Narrative Exam Narrative: Vital signs reviewed. HEET: Head normocephalic atraumatic, TMs clear bilaterally. Posterior pharynx is clear, moist mucous membranes. Nares clear bilaterally. Neck: Supple with no lymphadenopathy or tenderness. No signs of meningismus, negative jolt sign. Cardiac: Regular rate and rhythm no murmurs gallops or rubs, equal peripheral pulses bilaterally. Respiratory: Lungs clear to auscultation bilaterally. No chest tenderness. Abdomen: Soft, nontender, nondistended. No abdominal bruit or pulsatile masses. No hepatosplenomegaly Extremities: No peripheral edema, no signs of gross trauma or deformity. Active full range of motion of all extremities. Neuro: Cranial nerves II through XII intact, no focal neurological deficits. Skin: Clean dry and intact with no rash, purpura, petechiae, vesicles or pustules. Backs/flank: No CVA tenderness, no midline spinal tenderness, no deformity. Patient has significant bruising to the upper buttocks both the right and left. Hematoma noted. Psych: Normal mood and affect. No SI, HI or acute psychosis. Const Vital Signs: 01/12/23 11:56 01/12/23 12:43 Temperature 97.8 F Temperature Source Temporal Pulse Rate 83 Respiratory Rate 16 Respiratory Effort Normal Non-Labored Blood Pressure 144/83 H Blood Pressure Mean 103 Pulse Ox 100 Oxygen Delivery Method Room Air <Dr. Khanh Pascual MD - Last Filed: 01/12/23 17:19> Physical Exam Const Vital Signs: 01/12/23 11:56 01/12/23 12:43 Temperature 97.8 F Temperature Source Temporal Pulse Rate 83 Respiratory Rate 16 Respiratory Effort Normal Non-Labored Blood Pressure 144/83 H Blood Pressure Mean 103 Pulse Ox 100 Oxygen Delivery Method Room Air MDM <GIULIA Vasquez - Last Filed: 01/12/23 14:47> MDM Lab Data Labs: Laboratory Results - last 24 hr 01/12/23 01/12/23 01/12/23 12:20 12:20 12:37 WBC 8.3 RBC 4.49 L Hgb 14.1 Hct 40.2 MCV 89.5 MCH 31.4 MCHC 35.1 RDW Std Deviation 39.9 RDW Coeff of Mikie 12.3 Plt Count 238 MPV 8.6 Immature Gran % (Auto) 0.100 Neut % (Auto) 65.5 Lymph % (Auto) 20.0 Gray % (Auto) 10.9 H Eos % (Auto) 3.1 Baso % (Auto) 0.4 Absolute Neuts (auto) 5.4 Absolute Lymphs (auto) 1.66 Nucleated RBC % 0 Sodium 137 Potassium 3.2 L Chloride 104 Carbon Dioxide 28.0 Anion Gap 5 BUN 22 H Creatinine 1.16 Estim Creat Clear Calc 76.53 Est GFR (MDRD) Af Amer 82 Est GFR (MDRD) Non-Af 68 BUN/Creatinine Ratio 19.0 Glucose 126 H Calcium 9.4 Total Bilirubin 0.40 AST 29 ALT 33 Alkaline Phosphatase 93 Total Protein 7.0 Albumin 3.6 Globulin 3.4 Albumin/Globulin Ratio 1.1 Lipase 30 Urine Color Yellow Urine Clarity Clear Urine pH 6.5 Ur Specific [place] 1.010 Urine Protein Negative Urine Glucose (UA) Normal Urine Ketones Negative Urine Occult Blood Negative Urine Nitrite Negative Urine Bilirubin Negative Urine Urobilinogen Normal Ur Leukocyte Esterase Negative Urine RBC 0 SEEN Urine WBC 0 SEEN Ur Squamous Epith Cells 0 SEEN Urine Bacteria 0 SEEN Urine Mucus 0 SEEN Radiography Diagnostic Testing: Clinical Impression(s) from Imaging Studies Abdomen/Pelvis CT 01/12/23 12:19 IMPRESSION: Bilateral gynecomastia. No visualized intra-abdominal injury. Nonspecific bowel gas pattern. No appendicitis. Soft tissue edema right gluteal soft tissues and in the right gluteal muscle. No visualized fracture. There is multilevel degenerative change of the thoracolumbar spine without evidence of acute loss of height or alignment. Electronically Signed: Siobhan Garcia MD at 14:28 EDT , Treatment and Re-Evaluation :: Patient appears generally well, patient vital signs are stable, patient appears nontoxic. Patient presents the emergency department with lower back pain, abdominal pain, buttock pain after an injury that occurred yesterday at work. Patient did receive a full work-up concerning for any intra-abdominal process, such as organ damage, perforation. Patient did receive laboratory values which were grossly unremarkable. Patient's urinalysis was negative for any infection, no blood seen. Patient did receive a negative COVID-19, influenza secondary to feeling fevered. Patient's CT scan of the abdomen pelvis with IV contrast showed bilateral gynecomastia, no visualized intra-abdominal injury. Nonspecific bowel gas pattern, no appendicitis. Soft tissue edema right gluteal soft tissues and in the right gluteal muscle. No visualized fracture. There is also some multilevel degenerative changes of the thoracic or lumbar spine without evidence of acute loss of height or alignment. At this time, believe the patient is safe for discharge. There is no intra-abdominal process. Patient be diagnosed with hematoma, lumbar contusion. He will follow-up outpatient. He will be given a short course of [place] for pain, as well as nausea medicine. I did speak with him as well as the patient's they are happy with the plan of care all questions answered. Patient is stable for discharge <Dr. Khanh Pascual MD - Last Filed: 01/12/23 17:19> [facility] MDM Narrative Medical decision making narrative: Inadvertently documented on separate chart. Please read my individual note. Lab Data Labs: Laboratory Results - last 24 hr 01/12/23 01/12/23 01/12/23 12:20 12:20 12:37 WBC 8.3 RBC 4.49 L Hgb 14.1 Hct 40.2 MCV 89.5 MCH 31.4 MCHC 35.1 RDW Std Deviation 39.9 RDW Coeff of Mikie 12.3 Plt Count 238 MPV 8.6 Immature Gran % (Auto) 0.100 Neut % (Auto) 65.5 Lymph % (Auto) 20.0 Gray % (Auto) 10.9 H Eos % (Auto) 3.1 Baso % (Auto) 0.4 Absolute Neuts (auto) 5.4 Absolute Lymphs (auto) 1.66 Nucleated RBC % 0 Sodium 137 Potassium 3.2 L Chloride 104 Carbon Dioxide 28.0 Anion Gap 5 BUN 22 H Creatinine 1.16 Estim Creat Clear Calc 76.53 Est GFR (MDRD) Af Amer 82 Est GFR (MDRD) Non-Af 68 BUN/Creatinine Ratio 19.0 Glucose 126 H Calcium 9.4 Total Bilirubin 0.40 AST 29 ALT 33 Alkaline Phosphatase 93 Total Protein 7.0 Albumin 3.6 Globulin 3.4 Albumin/Globulin Ratio 1.1 Lipase 30 Urine Color Yellow Urine Clarity Clear Urine pH 6.5 Ur Specific [place] 1.010 Urine Protein Negative Urine Glucose (UA) Normal Urine Ketones Negative Urine Occult Blood Negative Urine Nitrite Negative Urine Bilirubin Negative Urine Urobilinogen Normal Ur Leukocyte Esterase Negative Urine RBC 0 SEEN Urine WBC 0 SEEN Ur Squamous Epith Cells 0 SEEN Urine Bacteria 0 SEEN Urine Mucus 0 SEEN Radiography Diagnostic Testing: Clinical Impression(s) from Imaging Studies Abdomen/Pelvis CT 01/12/23 12:19 IMPRESSION: Bilateral gynecomastia. No visualized intra-abdominal injury. Nonspecific bowel gas pattern. No appendicitis. Soft tissue edema right gluteal soft tissues and in the right gluteal muscle. No visualized fracture. There is multilevel degenerative change of the thoracolumbar spine without evidence of acute loss of height or alignment. Electronically Signed: Siobhan Garcia MD at 14:28 EDT , Discharge Plan Triage Chief Complaint: General Illness ED Midlevel Provider: Adrian Jiménez ED Provider: Khanh Pascual Dx/Rx/DC Orders Clinical Impression: Lumbar contusion, Hematoma, Abdominal wall contusion, Contusion of flank Instructions: ED Back Contusion, ED Hematoma Prescriptions: New hydrocodone-acetaminophen 5-325 mg tablet 1 tab PO Q4H PRN PRN (Reason: Pain) 3 Days Qty: 10 0RF ondansetron 4 mg tablet,disintegrating 4 mg PO Q8H PRN PRN (Reason: Nausea) Qty: 10 0RF No Action sertraline 50 mg tablet 50 mg PO DAILY baclofen 10 mg tablet 10 mg PO BID PRN (Reason: muscle spasm/pain) Qty: 180 0RF valacyclovir 1 gram tablet 1,000 mg PO BID Qty: 180 0RF Primary Care Provider: Per Truong Referrals: Per Truong MD [Primary Care Provider] - Activity Restrictions/Additional Instructions: Please continue to ice Perform gentle stretching. Disposition Disposition: Home, Self Care Discharge Date/Time: 01/12/23 14:57
== END 2023-01-12 14:57 | disposition home or self-care (01) ==
PROVIDERS: Nurse Practitioner; Emergency Provider Emergency Medicine; PCP Family Medicine; Visit Provider Emergency Medicine
DX: S30.0XXA Contusion of lower back and pelvis, initial encounter (principal); S30.1XXA Contusion of abdominal wall, initial encounter; W22.8XXA Striking against or struck by other objects, initial encounter; Y99.0 Civilian activity done for income or pay; Y92.89 Other specified places as the place of occurrence of the external cause; F17.290 Nicotine dependence, other tobacco product, uncomplicated; E66.9 Obesity, unspecified; Z68.35 Body mass index [BMI] 35.0-35.9, adult
CPT/HCPCS: 74177; 80053; 81001; 83690; 85025; 87428; 99283; Q9967; A4216

== ENCOUNTER → 2023-03-28 | Outpatient (CLI) | payer BC, SELFPAY ==
[2023-03-28 17:38] LABS: Absolute Lymphocyte Count 2.18 X10^3/uL (0.83-4.51); Absolute Neutrophil Count 5.1 X10^3/uL (2.0-7.7); Basophil# 0.03 X10^3/uL; Basophil% 0.4 % (0-1); Eosinophil# 0.41 X10^3/uL; Eosinophils% 4.8 % (0-5); Hematocrit 41.2 % (40-54); Hemoglobin 14.4 g/dL (13.0-16.5); Lymphocyte # 2.18 X10^3/ul (0.83-4.51); Lymphocyte % 25.5 % (19-41); Mean Corpuscular Hgb 31.4 pg (27.0-32.0); Monocyte% 9.3 % (0-10); NRBC Flagged by Analyzer 0 % (0-5); Neutrophil # 5.13 X10^3/uL (2.7-7.7); Neutrophil % 59.9 % (47-70); Platelet Count 253 K/mm3 (150-450); RBC Distribution Width CV 12.4 % (11.6-14.6); RBC Distribution Width SD 40.7 fl (35.1-43.9); Red Blood Count 4.58 M/mm3 (4.6-6.2); White Blood Count 8.6 K/mm3 (4.4-11.0)
[2023-03-28 18:43] LABS: ALB/GLOB Ratio 1.1 RATIO (0.9-2.4); AST(SGOT) 26 U/L (15-37); Alanine Aminotransfer ALT/SGPT 32 U/L (16-61); Albumin, Serum 3.8 g/dL (3.2-5.0); Alkaline Phosphatase 83 U/L (45-117); Anion Gap 9 (5-15); BUN 20 mg/dL (7-18); BUN/Creat Ratio 16.8 RATIO (10-20); Calcium,Total 8.9 mg/dL (8.5-10.1); Chloride 105 mmol/L (98-107); Cholesterol 205 mg/dL (200); Creatinine, Serum 1.19 mg/dL (0.70-1.30); EST Glomerular Filtration Rate 66 mL/min (>60); Est Glom Filt Rate - Afr Amer 80 mL/min (>60); Globulin 3.5 g/dL (2.2-4.2); Glucose 85 mg/dL (74-106); High Density Lipoprotein 40 mg/dL; Potassium 3.4 mmol/L (3.5-5.1); Protein, Total 7.3 g/dL (6.4-8.2); Sodium Level 140 mmol/L (136-145); Thyroid Stim Hormone (TSH) 1.45 uIU/mL (0.358-3.74); Triglycerides 132 mg/dL; Very Low Density Lipoprotein 26 mg/dL (5-40)
== END | disposition home or self-care (01) ==
LOC: MFPLAB 16:20
PROVIDERS: PCP Family Medicine; Visit Provider Family Medicine
DX: I10 Essential (primary) hypertension (principal)
CPT/HCPCS: 36415; 80053; 80061; 84443; 85025

== ENCOUNTER 2023-05-18 10:34 | Emergency (ER) | payer BC, SELFPAY ==
[2023-05-18 10:35] VITALS: BP 148/82; PULSE 99; RESP 18; TEMP 35.8; O2SAT 100; BMI 34.9
--- NOTE | 2023-05-18 10:56 | EX.ED.DYSGE1 ---
HPI History of Present Illness Chief Complaint: Lower Extremity Injury Informant: patient Narrative Narrative: Patient presents with some redness of his right great toe. He states he has chronic onychomycosis. This has been managed before but never really gone away. He had some bruising of the toe because he wore shoes that move the nail [id number] and irritated. About 2 days ago it started to get red in the medial aspect. It now has a little pocket of pus. He states it is sore but not really painful. He does have some decreased sensation due to a history of cauda equina syndrome but he still feels pain. He states he does not have any systemic symptoms such as nausea vomiting fevers chills or generalized weakness or malaise. He is eating and drinking fine. He came in because he was concerned that the redness seems to be increasing on the toe and his foot seem to be a little bit warm. [facility] Medical History Back problem HTN (hypertension) Neuropathy Home Medications sertraline 50 mg tablet 50 mg PO DAILY 06/26/21 [History Last Taken Unknown] baclofen 10 mg tablet 10 mg PO BID PRN muscle spasm/pain #180 tabs 12/04/21 [Rx Last Taken Unknown] valacyclovir 1 gram tablet 1,000 mg PO BID #180 tabs 12/19/21 [Rx Last Taken Unknown] hydrocodone-acetaminophen 5-325mg 5mg-325mg 1 tab PO Q4H PRN PRN Pain 3 days #10 TABLETS 01/12/23 [Rx Last Taken Unknown] ondansetron 4 mg disintegrating tablet 4 mg PO Q8H PRN PRN Nausea #10 tabs 01/12/23 [Rx Last Taken Unknown] doxycycline monohydrate 100 mg capsule 100 mg PO BID #20 CAPSULES 05/18/23 [Rx Last Taken Unknown] Allergy/AdvReac Type Severity Reaction Status Date / Time No Known Allergies Allergy Verified 01/12/23 11:56 Social History Smoking Status: Current some day smoker tobacco type: cigars per week: 3 Tobacco: How many years used: 5 second hand exposure: No alcohol intake: current alcohol intake frequency: a few times a week substance use type: does not use ROS ROS ED Constitutional Constitutional ED: Denies chills, fever(s), subjective or sweats Cardiovascular Cardiovascular: Denies chest pain Respiratory/Chest Respiratory/Chest: Denies cough or dyspnea Gastrointestinal Gastrointestinal: Denies nausea or vomiting Musculoskeletal Musculoskeletal: Reports other Details: See history of present illness ; Denies myalgias Integumentary Reports other Details: See history of present illness Neurologic Neurologic: Reports paresthesias and other Details: Patient has some chronic paresthesias of lower extremities related to cauda equina syndrome in the past. But this is unchanged from his baseline. His sensation is still intact. But it is altered ; Denies weakness Endocrine Endocrinology: Denies polydipsia or polyuria Hematologic/Lymphatic Hematologic/Lymphatic: Denies easy bleeding, easy bruising or lymphadenopathy EXAM Physical Exam Narrative Exam Narrative: Patient awake alert no acute distress sitting comfortably in the bed very nontoxic in appearance. HEENT shows no trauma Cardiorespiratory shows easy unlabored breathing, normal pulse and his saturations are normal at 100% on room air showing no hypoxia. Extremities show no swelling. He does have erythema around the distal portion of the right great toe. This is mostly on the medial aspect of the nail and there is a small blister with some purulence under it right next to the nail consistent with paronychia. He also has significant thickening of the nails consistent with chronic yeast involvement. He has callus formation. But the toe itself is still soft. He does have a little bit of warmth proximal to this but the foot is not red. I am not seeing streaking going up the foot ankle or leg. There is no tenderness there. But I do suspect that the infection is starting to involve more the proximal aspect of the toe. His sensation is intact and there is no pain with motion of the joint. No pain with motion of the other toes. No cracking of the skin between toes. Skin exam: See above. Const Vital Signs: 05/18/23 10:35 05/18/23 12:02 Temperature 96.5 F L 97.8 F Temperature Source Temporal Pulse Rate 99 64 Respiratory Rate 18 14 Blood Pressure 148/82 H 137/78 H Blood Pressure Mean 104 Pulse Ox 100 99 Oxygen Delivery Method Room Air MDM MDM MDM Narrative Medical decision making narrative: Procedure: Drainage of paronychia: I cleaned the area around the nail and toe. There is a small pocket of pus about 1 cm round just medial to the nail. No anesthesia was needed. I just opened this up with the tip of the blade. We got a small amount of purulence out. I squeezed and manipulated the toe and we did not get any more. I think this was a superficial pocket. I do not think this needs greater incision. BG T was normal at 98. Patient will be given antibiotics indications for follow-up and return. Lab Data Attestation: I reviewed the patient's lab results. Labs: Laboratory Results - last 24 hr 05/18/23 11:21 POC Glucose 98 Discharge Plan Triage Chief Complaint: Lower Extremity Injury Other Complaint: Wound ED Provider: Rocky Pascual Dx/Rx/DC Orders Clinical Impression: Paronychia of great toe of right foot Instructions: ED Paronychia of the Finger or Toe Prescriptions: New doxycycline monohydrate 100 mg capsule 100 mg PO BID Qty: 20 0RF No Action sertraline 50 mg tablet 50 mg PO DAILY hydrocodone-acetaminophen 5-325 mg tablet 1 tab PO Q4H PRN PRN (Reason: Pain) 3 Days Qty: 10 0RF ondansetron 4 mg tablet,disintegrating 4 mg PO Q8H PRN PRN (Reason: Nausea) Qty: 10 0RF baclofen 10 mg tablet 10 mg PO BID PRN (Reason: muscle spasm/pain) Qty: 180 0RF valacyclovir 1 gram tablet 1,000 mg PO BID Qty: 180 0RF Primary Care Provider: Per Truong Referrals: Per Truong MD [Primary Care Provider] - 3-5 Days Disposition Disposition: Home, Self Care Discharge Date/Time: 05/18/23 12:03
[2023-05-18] MEDS: Doxycycline 100 MG CAPSULE PO (11:21)
[2023-05-18 11:40] LABS: Bedside Glucose 98 mg/dL (74-106)
[2023-05-18 12:02] VITALS: BP 137/78; PULSE 64; RESP 14; TEMP 36.6; O2SAT 99
== END 2023-05-18 12:03 | disposition home or self-care (01) ==
LOC: ED 11:10
PROVIDERS: Emergency Provider Emergency Medicine; PCP Family Medicine; Visit Provider Emergency Medicine
DX: L03.031 Cellulitis of right toe (principal); F17.290 Nicotine dependence, other tobacco product, uncomplicated
CPT/HCPCS: 10060; 82962; 99283

== ENCOUNTER 2023-06-14 09:32 | Inpatient (IN) | payer BC, SELFPAY ==
[2023-06-14 09:34] VITALS: BP 161/80; PULSE 74; RESP 14; TEMP 35.9; O2SAT 97; BMI 34.8
--- NOTE | 2023-06-14 10:14 | EDS_ITS ---
HPI History of Present Illness Chief Complaint: Wound Informant: patient Narrative Narrative: 63-year-old male presenting for myelitis of his right great toe. Patient is followed with Dr. Reynoso, podiatry. He has been having ongoing issues with this infection for the past month. He notes it a little bit more angry today with increased redness and swelling. He has been on a course of doxycycline. 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 Because of this he has some chronic paresthesias of his leg. Denies any significant pain. Denies any systemic symptoms such as fever or chills. Has been doing wound care as instructed per podiatry. Was told he needs to come to the hospital and likely will need surgery on his foot. [facility] Medical History Back problem HTN (hypertension) Neuropathy Home Medications sertraline 50 mg tablet 25 mg PO DAILY 06/26/21 [History Last Taken 06/14/23] baclofen 10 mg tablet 10 mg PO BID PRN muscle spasm/pain #180 tabs 12/04/21 [Rx Last Taken 06/14/23] valacyclovir 1 gram tablet 1,000 mg PO BID #180 tabs 12/19/21 [Rx Last Taken 06/14/23] doxycycline hyclate 100 mg capsule 100 mg PO Q12H 06/14/23 [History Last Taken 06/14/23] hydrochlorothiazide 25 mg tablet 25 mg PO DAILY 06/14/23 [History Last Taken 06/14/23] lisinopril 5 mg tablet 5 mg PO DAILY 06/14/23 [History Last Taken 06/14/23] tamsulosin 0.4 mg capsule 0.4 mg PO QHS 06/14/23 [History Last Taken 06/13/23] Allergy/AdvReac Type Severity Reaction Status Date / Time No Known Allergies Allergy Verified 01/12/23 11:56 Social History Smoking Status: Former smoker Tobacco: How many years used: 5 second hand exposure: No alcohol intake: current alcohol intake frequency: a few times a week substance use type: does not use ROS ROS ED Constitutional Constitutional ED: Denies chills or fever(s) Respiratory/Chest Respiratory/Chest: Denies cough Gastrointestinal Gastrointestinal: Denies nausea or vomiting Musculoskeletal Musculoskeletal: Denies arthralgias or myalgias Integumentary Reports other Details: Right great toe wound Neurologic Neurologic: Reports paresthesias; Denies headache(s) or weakness Hematologic/Lymphatic Hematologic/Lymphatic: Denies easy bleeding or easy bruising EXAM Physical Exam Const Vital Signs: 06/14/23 09:34 Temperature 96.7 F L Temperature Source Temporal Pulse Rate 74 Respiratory Rate 14 Blood Pressure 161/80 H Blood Pressure Mean 107 Pulse Ox 97 Oxygen Delivery Method Room Air Positive well nourished and well developed General Appearance ED: well developed and NAD HEENT Reports moist mucous membranes Neck supple Chest Wall inspection of chest normal and palpation of chest normal Resp normal respiratory effort and clear to auscultation bilaterally Cardio regular rate, regular rhythm and no murmurs Cardio Narrative: 2+ DP pulses GI non-tender and non-distended Extremity normal to inspection Extremity Narrative: Erythema and chronic appearing edema of the right great toe with mildly decreased range of motion. The nail is absent on the right great toe. General Extremety ED: Negative for edema General Extremity: Negative for edema Neuro oriented x3 and moves all extremities Skin Skin Narrative: Erythema and plethora of the right great toe. There is an ulcerated lesion on the pad of the toe. No active drainage or fluctuance at this time. No associated lymphangitic streaking. MDM MDM MDM Narrative Medical decision making narrative: Is evaluated for continued right great toe infection. His psychiatry adult physician sent him to the ER to be admitted for IV antibiotics and operative management. Discussed the case with his psychiatry adult physician, Dr. Reynoso. We will obtain basic labs. Dr. Reynoso has imaging and does not require repeat x-ray at this time. Will start on vancomycin and Zosyn. He appears nontoxic and does not appear septic. We will discuss the case with hospitalist. Is admitted to Dr. Castillo. Lab Work Largely Unremarkable However He Does Have an Elevated CRP Consistent with His Diagnosis of Presumed Osteomyelitis. Lab Data Labs: Laboratory Results - last 24 hr 06/14/23 10:05 WBC 7.1 RBC 4.83 Hgb 14.7 Hct 44.3 MCV 91.7 MCH 30.4 MCHC 33.2 RDW Std Deviation 43.1 RDW Coeff of Mikie 12.9 Plt Count 261 MPV 9.2 Immature Gran % (Auto) 0.400 Neut % (Auto) 60.0 Lymph % (Auto) 24.4 [place] % (Auto) 10.0 Eos % (Auto) 4.8 Baso % (Auto) 0.4 Absolute Neuts (auto) 4.3 Absolute Lymphs (auto) 1.73 Nucleated RBC % 0 ESR 7 Sodium 138 Potassium 3.5 Chloride 106 Carbon Dioxide 27.0 Anion Gap 5 BUN 23 H Creatinine 1.17 Estim Creat Clear Calc 74.93 Est GFR (MDRD) Af Amer 81 Est GFR (MDRD) Non-Af 67 BUN/Creatinine Ratio 19.7 Glucose 104 Calcium 9.2 C-React Prot Ext Range 9.76 H Discharge Plan Triage Chief Complaint: Wound ED Provider: Vivien Arreaga Dx/Rx/DC Orders Clinical Impression: Osteomyelitis of great toe of right foot Prescriptions: No Action sertraline 50 mg tablet 25 mg PO DAILY lisinopril 5 mg tablet 5 mg PO DAILY Patient Comments: take 1 tablet by mouth once daily tamsulosin 0.4 mg capsule 0.4 mg PO QHS Patient Comments: take 2 capsules by mouth at bedtime hydrochlorothiazide 25 mg tablet 25 mg PO DAILY Patient Comments: take 1 tablet by mouth once daily doxycycline hyclate 100 mg capsule 100 mg PO Q12H Rx Instructions: X10D 06/05 FILL DATE baclofen 10 mg tablet 10 mg PO BID PRN (Reason: muscle spasm/pain) Qty: 180 0RF Patient Comments: PT STATES HE HAS ONLY BEEN TAKING 1XD QAM valacyclovir 1 gram tablet 1,000 mg PO BID Qty: 180 0RF Primary Care Provider: Per Truong Referrals: Per Truong MD [Primary Care Provider] - Disposition Disposition: Acute Care Hospital [facility]
[2023-06-14 10:37] LABS: Erythrocyte Sedimentation Rate 7 mm/hr (0-20)
[2023-06-14 10:38] LABS: Absolute Lymphocyte Count 1.73 X10^3/uL (0.83-4.51); Absolute Neutrophil Count 4.3 X10^3/uL (2.0-7.7); Basophil# 0.03 X10^3/uL; Basophil% 0.4 % (0-1); Eosinophil# 0.34 X10^3/uL; Eosinophils% 4.8 % (0-5); Hematocrit 44.3 % (40-54); Hemoglobin 14.7 g/dL (13.0-16.5); Lymphocyte # 1.73 X10^3/ul (0.83-4.51); Lymphocyte % 24.4 % (19-41); Mean Corp Hgb Conc 33.2 g/dL (32-36); Mean Corpuscular Hgb 30.4 pg (27.0-32.0); Mean Corpuscular Volume 91.7 fL (80-94); Mean Platelet Vol. 9.2 fl (6.2-12.0); Monocyte# 0.71 X10^3/uL; NRBC Flagged by Analyzer 0 % (0-5); Neutrophil # 4.25 X10^3/uL (2.7-7.7); Platelet Count 261 K/mm3 (150-450); RBC Distribution Width CV 12.9 % (11.6-14.6); RBC Distribution Width SD 43.1 fl (35.1-43.9); Red Blood Count 4.83 M/mm3 (4.6-6.2); White Blood Count 7.1 K/mm3 (4.4-11.0)
[2023-06-14 10:48] LABS: Anion Gap 5 (5-15); BUN 23 mg/dL (7-18); BUN/Creat Ratio 19.7 RATIO (10-20); CRP 9.76 mg/L (0.0-3.0); Calcium,Total 9.2 mg/dL (8.5-10.1); Chloride 106 mmol/L (98-107); Creatinine, Serum 1.17 mg/dL (0.70-1.30); EST Glomerular Filtration Rate 67 mL/min (>60); Est Glom Filt Rate - Afr Amer 81 mL/min (>60); Estimated Creatinine Clearance 74.93 ml/min; Glucose 104 mg/dL (74-106); Potassium 3.5 mmol/L (3.5-5.1); Sodium Level 138 mmol/L (136-145)
[2023-06-14] MEDS: Piperacil/Tazobactam 4.5 GM in 0.9% Normal Saline (100mL MB+) 100 ML IV (10:51)
[2023-06-14 11:20] VITALS: BP 123/80; PULSE 67; RESP 14; TEMP 36.7
[2023-06-14] MEDS: Vancomycin HCl 1,750 MG in 0.9% Normal Saline (500mL Bag) 500 ML 250 MG IV (11:20)
--- NOTE | 2023-06-14 11:26 | NURSING ---
MED SURG KOTSON[place] OSTEOMYOLYTITIS OF RT GREAT TOE
--- NOTE | 2023-06-14 11:48 | PCM.HP.STD ---
HPI - General General Date of Admission: 06/14/23 HPI Narrative ZORAN HAYNES, is a 63 M who presents to the hospital with request of his tourist information assistant secondary to a continued right great toe infection with concerns for osteomyelitis. He has been seeing podiatry as an outpatient for wound care and he noticed that the his toe is gotten little bit more swollen will bit more red. He was evaluated by his tourist information assistant who obtained outpatient imaging and felt that he should come into the ER for IV antibiotics and likely surgery. He denies any fevers or chills and does not have a leukocytosis on admission. [facility] Medical History Back problem HTN (hypertension) Neuropathy Home Medications sertraline 50 mg tablet 25 mg PO DAILY 06/26/21 [History Last Taken 06/14/23] baclofen 10 mg tablet 10 mg PO BID PRN muscle spasm/pain #180 tabs 12/04/21 [Rx Last Taken 06/14/23] valacyclovir 1 gram tablet 1,000 mg PO BID #180 tabs 12/19/21 [Rx Last Taken 06/14/23] doxycycline hyclate 100 mg capsule 100 mg PO Q12H 06/14/23 [History Last Taken 06/14/23] hydrochlorothiazide 25 mg tablet 25 mg PO DAILY 06/14/23 [History Last Taken 06/14/23] lisinopril 5 mg tablet 5 mg PO DAILY 06/14/23 [History Last Taken 06/14/23] tamsulosin 0.4 mg capsule 0.4 mg PO QHS 06/14/23 [History Last Taken 06/13/23] Allergy/AdvReac Type Severity Reaction Status Date / Time No Known Allergies Allergy Verified 01/12/23 11:56 Family History (Updated 06/14/23 @ 16:[address] Jah Castillo MD) Other Cancer Diabetes Heart disease no surgical history Social History Smoking Status: Former smoker Tobacco: How many years used: 5 second hand exposure: No alcohol intake: current alcohol intake frequency: a few times a week substance use type: does not use ROS Constitutional Constitutional: Denies chills, fatigue, fever(s) or malaise Eyes Eyes: Denies blurry vision ENT HEENT: Denies headache(s) or nasal discharge Cardiovascular Cardiovascular: Denies chest pain, dyspnea on exertion or syncope Respiratory/Chest Respiratory/Chest: Denies cough, shortness of breath at rest or shortness of breath with exertion Gastrointestinal Gastrointestinal: Denies constipation, diarrhea, nausea or vomiting Genitourinary Genitourinary: Denies dysuria Integumentary Integumentary: Reports wounds Neurologic Neurologic: Denies focal weakness, numbness or tremor(s) Psychiatric Psychiatric: Denies anxiety or depression Vital Signs Vital Signs Vital Signs: 06/14/23 09:34 06/14/23 11:20 Temperature 96.7 F L 98.0 F Temperature Source Temporal Oral Pulse Rate 74 67 Respiratory Rate 14 14 Blood Pressure 161/80 H 123/80 H Blood Pressure Mean 107 94 Pulse Ox 97 Oxygen Delivery Method Room Air Weight Weight: 263 lb 12.8 oz Body Mass Index (BMI) 34.8 Physical Exam Narrative General: Alert, Oriented x3, Cooperative, No apparent distress HEENT: Atraumatic, PERRLA, EOMI, Normocephalic Oral: Moist Mucosa Neck: Supple, No JVD Lungs: Clear to auscultation, Normal air movement, No rhonchi, No wheeze, No rales Cardiovascular: Regular rate, Regular Rhythm, Normal S1, Normal S2, No murmurs Abdomen: Soft, Non Tender, Non-Distended, No Hepato-splenomegaly Extremities: No edema, Capillary Refill Less than 3 Seconds Skin: Right great toe with increased redness and swelling Musculoskeletal: No Tenderness to Palpation of Joints or Extremities Neurological: Cranial nerves II-XII grossly intact, Motor Exam 5/5 strength throughout, Sensory exam intact to light touch and pain Psych/Mental Status: Normal Affect, Appropriate Results Lab / Micro Data 06/14/23 10:05 06/14/23 10:05 Labs: Laboratory Results - last 24 hr 06/14/23 10:05: WBC 7.1, RBC 4.83, Hgb 14.7, Hct 44.3, MCV 91.7, MCH 30.4, MCHC 33.2, RDW Std Deviation 43.1, RDW Coeff of Mikie 12.9, Plt Count 261, MPV 9.2, Immature Gran % (Auto) 0.400, Neut % (Auto) 60.0, Lymph % (Auto) 24.4, [place] % (Auto) 10.0, Eos % (Auto) 4.8, Baso % (Auto) 0.4, Absolute Neuts (auto) 4.3, Absolute Lymphs (auto) 1.73, Nucleated RBC % 0, ESR 7, Sodium 138, Potassium 3.5, Chloride 106, Carbon Dioxide 27.0, Anion Gap 5, BUN 23 H, Creatinine 1.17, Estim Creat Clear Calc 74.93, Est GFR (MDRD) Af Amer 81, Est GFR (MDRD) Non-Af 67, BUN/Creatinine Ratio 19.7, Glucose 104, Calcium 9.2, C-React Prot Ext Range 9.76 H Assessment & Plan Assessment/Plan (1) Osteomyelitis of great toe of right foot: PLAN: Plan 1. Right great toe osteomyelitis ? Diagnosis per podiatry ? We will consult for operative intervention ? Continue with vancomycin and Zosyn ? Low risk for surgery 2. Hypertension ? Stable ? Can home medications, will monitor and make adjustments as necessary 3. Anxiety/depression ? Stable ? Continue with Zoloft 4. BPH ? Stable ? Continue with Flomax 5. Chronic herpes ? 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 Continue with valacyclovir DVT: Lovenox 75 minutes was spent on direct patient care, including documentation as well as chart review and collaboration with colleagues Charges/Coding Visit Charges Inpatient E&M: 18758 Init Hosp L3
[2023-06-14 12:54] VITALS: BP 122/74; PULSE 61; RESP 16; TEMP 36.7; O2SAT 100
[2023-06-14 12:59] VITALS: BMI 34.7
--- NOTE | 2023-06-14 13:12 | PCM.RX.CS ---
Consult Antibiotic Management Pharmacy has been consulted to manage selected antiobiotic: Vancomycin Type of Intervention Type of Consult: New start Suspected Infection Suspected Infection: Osteomyelitis Prior Doses of Antibiotics Prior Doses of Antibiotics Received/Current Regimen: received vanc 1750mg IV x1 in E.D. starting at 11:20 today Labs Labs: Sodium 138 mmol/L (136-145) 06/14/23 10:05 Potassium 3.5 mmol/L (3.5-5.1) 06/14/23 10:05 Chloride 106 mmol/L (98-107) 06/14/23 10:05 Carbon Dioxide 27.0 mmol/L (21.0-32.0) 06/14/23 10:05 Anion Gap 5 (5-15) 06/14/23 10:05 BUN 23 mg/dL (7-18) H 06/14/23 10:05 Creatinine 1.17 mg/dL (0.70-1.30) 06/14/23 10:05 Est GFR (MDRD) Af Amer 81 mL/min (>60) 06/14/23 10:05 Est GFR (MDRD) Non-Af 67 mL/min (>60) 06/14/23 10:05 BUN/Creatinine Ratio 19.7 RATIO (10-20) 06/14/23 10:05 Glucose 104 mg/dL (74-106) 06/14/23 10:05 Dosing Weight Weight used for dosin lb 14.293 oz Estimated Creatinine Clearance Estimated Creatinine Clearance: 89.8 ml/mi Goal Trough Goal Trough: 15-20 mcg/mL Pharmacy Plan for Drug Dosing Pharmacy Plan for Drug Dosing: Starting 12 hours after the E.D. dose, continue with vanc 2000mg IV q12h per [facility] dosing protocol. Will check a trough before the 4th total dose. The patient's CrCl of 89.8ml/min was calculated using an adjusted body weight. Pharmacy Service will continue to monitor and adjust dosing as required. Follow-Up Labs Follow-Up Labs: Trough: Vancomycin Date/Time Labs Ordered Labs to be done on [date and time ordered]: 06/15/23 22:30
--- NOTE | 2023-06-14 13:46 | WOUNDNOTE ---
wound photo: right great toe
--- NOTE | 2023-06-14 13:47 | WOUNDNOTE ---
wound photo: right great toe
--- NOTE | 2023-06-14 14:32 | PCM.CONS.GEN ---
Assessment & Plan Assessment/Plan (1) Osteomyelitis of great toe of right foot: PLAN: Patient was examined evaluated. All findings were discussed with the patient. All questions were answered to the patient satisfaction. Excisional debridement down to and including subcutaneous tissue with 5 mm dermal curette to the right hallux full-thickness ulceration. Predebridement measurements were 0.8 x 0.8 x 0.1 cm, postdebridement measurements are 1.2 x 1.0 x 0.3 cm. All risk and benefits of the surgery were discussed with the patient in great detail as well as his . The patient and I are in understanding that the patient will need surgical intervention to rid his right great toe of the bone infection. We will plan for incision and drainage, and incision of bone cortex tomorrow 06/15/2023 at 8 AM. Patient to be n.p.o. midnight tonight. Medicine: On board, medical management, please clear the patient medically for surgery with risks documented. IV antibiotics: Vancomycin and Zosyn DVT prophylaxis: Lovenox Please reach out to Dr. Reynoso with any questions or concerns. Thank you for the consultation! (2) Radiculopathy: QUALIFIERS: Spinal region: lumbar Qualified Code(s): M54.16 - Radiculopathy, lumbar region (3) Chronic ulcer of right great toe: QUALIFIERS: Non-pressure ulcer stage: with fat layer exposed Qualified Code(s): L97.512 - Non-pressure chronic ulcer of other part of right foot with fat layer exposed HPI Consult Data Date of Consult: 06/14/23 HPI Narrative Reason for Consultation: Osteomyelitis, right hallux HPI Narrative: ZORAN HAYNES, is a 63 M who presents to the emergency department for admission at [facility] secondary underlying bone infection/osteomyelitis of the right hallux. Patient was originally seen in the emergency department approximately 6 to 7 weeks ago where he had an incision and drainage, discharged and placed on oral antibiotics for 2 weeks. The patient presented to my office 3 days after his initial emergency department visit where we underwent an incision and drainage of the right toenail secondary to worsening infection. The patient was treated with local wound care in my office as well as an additional course of 2 weeks of doxycycline antibiotics. The patient showed to be recovering well after the second round of antibiotics however, as of yesterday, the patient showed evidence of concern for bone infection and due to increased redness, proximal streaking and dactylitis of the right hallux. Osteomyelitis was confirmed with three-view x-ray, showing destruction of architecture to the distal tuft of the distal phalanx, right hallux. Patient states that he has had increased pain within the last 24 hours as well as increased redness to the right foot. Patient admits to not feeling well. Patient denies constitutional symptoms at this time. No other pedal complaints at this time. [facility] Medical History Back problem HTN (hypertension) Neuropathy Home Medications sertraline 50 mg tablet 25 mg PO DAILY 06/26/21 [History Last Taken 06/14/23] baclofen 10 mg tablet 10 mg PO BID PRN muscle spasm/pain #180 tabs 12/04/21 [Rx Last Taken 06/14/23] valacyclovir 1 gram tablet 1,000 mg PO BID #180 tabs 12/19/21 [Rx Last Taken 06/14/23] doxycycline hyclate 100 mg capsule 100 mg PO Q12H 06/14/23 [History Last Taken 06/14/23] hydrochlorothiazide 25 mg tablet 25 mg PO DAILY 06/14/23 [History Last Taken 06/14/23] lisinopril 5 mg tablet 5 mg PO DAILY 06/14/23 [History Last Taken 06/14/23] tamsulosin 0.4 mg capsule 0.4 mg PO QHS 06/14/23 [History Last Taken 06/13/23] Allergy/AdvReac Type Severity Reaction Status Date / Time No Known Allergies Allergy Verified 01/12/23 11:56 Social History Smoking Status: Former smoker Tobacco: How many years used: 5 second hand exposure: No alcohol intake: current alcohol intake frequency: a few times a week substance use type: does not use Physical Exam Narrative Vascular: DP and PT pulses are palpable. Capillary refill time is brisk. Nonblanchable erythema appreciated to the right hallux with proximal streaking. Skin temperature gradient is warm to warm from proximal ankle to distal digit with increased focal warmth to the right hallux. Neurological: Light touch intact. Protective sensation is diminished. Patient does not respond to painful stimuli. Dermatological: Full-thickness ulceration to the distal hallux measuring 1.2 x 1.0 x 0.3 cm. Sanguinous drainage noted with scant purulence. Positive for probe to bone. Evidence of tunneling to the dorsum of the right hallux. Excisional debridement down to and including subcutaneous tissue with 5 mm dermal curette to the right hallux full-thickness ulceration. Predebridement measurements were 0.8 x 0.8 x 0.1 cm, postdebridement measurements are 1.2 x 1.0 x 0.3 cm. Musculoskeletal: Muscle strength is intact. Mild to moderate palpatory tenderness appreciated to the full-thickness ulceration of the right hallux. Palpable bogginess appreciated to the distal tuft of the right hallux. No pain with calf compression. Const alert and oriented x3 Lab / Micro Data 06/14/23 10:05 06/14/23 10:05 Labs: Laboratory Results - last 24 hr 06/14/23 10:05: WBC 7.1, RBC 4.83, Hgb 14.7, Hct 44.3, MCV 91.7, MCH 30.4, MCHC 33.2, RDW Std Deviation 43.1, RDW Coeff of Mikie 12.9, Plt Count 261, MPV 9.2, Immature Gran % (Auto) 0.400, Neut % (Auto) 60.0, Lymph % (Auto) 24.4, [place] % (Auto) 10.0, Eos % (Auto) 4.8, Baso % (Auto) 0.4, Absolute Neuts (auto) 4.3, Absolute Lymphs (auto) 1.73, Nucleated RBC % 0, ESR 7, Sodium 138, Potassium 3.5, Chloride 106, Carbon Dioxide 27.0, Anion Gap 5, BUN 23 H, Creatinine 1.17, Estim Creat Clear Calc 74.93, Est GFR (MDRD) Af Amer 81, Est GFR (MDRD) Non-Af 67, BUN/Creatinine Ratio 19.7, Glucose 104, Calcium 9.2, C-React Prot Ext Range 9.76 H
--- NOTE | 2023-06-14 15:44 | CASEMGMT ---
NABIL CHEEMA Assessment: Face to Face with pt for initial transition planning/care coordination assessment. RN ANETTE introduced self and role at [facility], pt voices understanding and consents to assessment. Pt is A/O x4 and answers all questions appropriately at this time. Pt sitting up in bed in no distress, at bedside. in to room during assessment to make aware of OR time at 8a tomorrow. Care providers, pharmacy, and demographics verified/updated. Admitting Dx: osteo of toe PCP:Dionne Specialists:juliet Reynoso Pharmacy: [facility] Insurance: [place] Prescription Benefit: yes LNOK: Kat Barr, Living Arrangements: Pt lives with in a 3 story home with 3 steps to enter with a rail. Pt reports he is I in ADL's and denies concerns at home. Transportation: Pt drives self and denies concerns with transportation. DME/HHC/SNF: Pt has a cane and FWW available to him. Pt denies hx of HHC or SNF stays. Pt states no concerns with going home at time of dc. Pt reports he has had a picc line and IV atb in the past. He would want to do this at home again if needed. RN CM to follow post surgery for needs. Pt states no further concerns/needs. Advised pt to ask CM if any further question/concerns/needs arise, voices understanding. Pt Goal: Home Plan: Home vs HHC if need IV atb
[2023-06-14 21:26] VITALS: BP 131/71; PULSE 69; RESP 18; TEMP 36.8; O2SAT 94
[2023-06-14] MEDS: Acyclovir 200 MG Capsule 400 MG PO (21:30)
[2023-06-14] MEDS: Tamsulosin HCl 0.4 MG Capsule PO (21:37)
[2023-06-14] MEDS: 0.9% Saline Lock 10 ML Syringe IV ×2 (21:45→23:16)
[2023-06-14] MEDS: Piperacil/Tazobactam 3.375 GM in 0.9% Normal Saline (50mL MB+) 50 ML IV (22:02)
[2023-06-14] MEDS: Vancomycin HCl 2,000 MG in 0.9% Normal Saline (500mL Bag) 500 ML 250 MG IV (23:16)
[2023-06-15] VITALS (10 sets, daily range): BP systolic 102–132; BP diastolic 50–88; PULSE 53–92; RESP 16–18; TEMP 36.2–36.8; O2SAT 96–98; BMI 34.9
--- NOTE | 2023-06-15 | BON_PTH ---
PATIENT: ZORAN HAYNES LOC: MS3 U#:[id number] AGE/SX: 63/M ROOM: SC319 RE06/14/[address]: Dr. Rahel Hendrix MD : 1960 BED: 1 DIS: 06/18/2023 SPEC #: [id number] RECD: 06/17/23 07:11 STATUS: DOMINICK REQ #: [id number] MACY: 06/15/23 00:[address]: Les Reynoso DEPT: SURGICAL PATHOLOGY RECD BY: Karlos Horowitz ENTERED: 06/17/23 12:06 SP TYPE: Bone OTHR DR: Dr. Les Reynoso, DPM MD Dr. Rahel Diamond MD Dr. Nicholas F Kotsonis, MD Tissues: A - Bone of foot, NOS B - Bone of foot, NOS Procedures: Decalcification bone/plaque Surgery Specimen Level IV Surgery Specimen Level V Comments: @ Ordering doctor for DEC edited from to @ dominique JARA at 06/17/23 144 @ Ordering doctor for SUIII edited from to DR.JMOSS Mariluz JARA at 06/17/23 144 @ Submitting doctor edited from to @ dominique JARA at 06/17/23 1447 HEADER OPERATION: I & D, incision of bone cortex PRE-OP DIAGNOSIS: Osteomyelitis of great toe of right foot TISSUE SUBMITTED: A - Incision bone cortex distal phalanx right foot, B - Incision bone cortex distal phalanx right foot clean margin MICROSCOPIC DIAGNOSIS A. Bone of distal right foot phalanx, biopsy: Reactive and reparative change. No evidence of osteomyelitis. B. Bone cortex, distal phalanx right foot clear margin: Osseocartilaginous tissue with no significant pathologic change. AM:svetlana 06/19/2023 MICROSCOPIC DESCRIPTION Slides are reviewed. GROSS DESCRIPTION A - Received in fixative is one container labeled with the patient's name and designated incision bone cortex distal phalanx right foot. The specimen consists of a piece of bone measuring 1.5 x 1.0 x 0.6 cm. The specimen is bisected and submitted entirely in one cassette after decalcification. B - Received in fixative is one container labeled with the patient's name and designated incision bone cortex distal phalanx right foot clean margin. The specimen consists of a piece of bone measuring 1.5 x 1.0 x 0.6 cm. The specimen is bisected and submitted entirely in one cassette after decalcification. / SJ:svetlana 06/17/2023 TC:5 CPT: 59468, 30125, 94307 x2
[2023-06-15] MEDS: Piperacil/Tazobactam 3.375 GM in 0.9% Normal Saline (50mL MB+) 50 ML IV ×3 (05:16→21:12)
--- NOTE | 2023-06-15 05:55 | EKG12_ITS ---
Test Reason : Pre-Op Blood Pressure : / mmHG Vent. Rate : 057 BPM Atrial Rate : 057 BPM P-R Int : 148 ms QRS Dur : 094 ms QT Int : 464 ms P-R-T Axes : 032 -44 000 degrees QTc Int : 451 ms Sinus bradycardia Left axis deviation Minimal voltage criteria for LVH, may be normal variant ( R in aVL ) Inferior infarct , age undetermined Abnormal ECG Confirmed by HERNAN MEIER, MATTHEW ([id number]), commissioning editor NETTIE WARREN ([id number]) on 07/09/2023 11:51:02 AM Referred By: Moisés Confirmed By:MATTHEW BECERRA MD
[2023-06-15 06:15] LABS: Absolute Lymphocyte Count 2.27 X10^3/uL (0.83-4.51); Absolute Neutrophil Count 4.9 X10^3/uL (2.0-7.7); Basophil# 0.03 X10^3/uL; Basophil% 0.3 % (0-1); Eosinophil# 0.47 X10^3/uL; Eosinophils% 5.5 % (0-5); Lymphocyte # 2.27 X10^3/ul (0.83-4.51); Lymphocyte % 26.4 % (19-41); Mean Corp Hgb Conc 34.1 g/dL (32-36); Mean Corpuscular Hgb 31.7 pg (27.0-32.0); Mean Corpuscular Volume 92.8 fL (80-94); Mean Platelet Vol. 8.8 fl (6.2-12.0); Monocyte% 10.5 % (0-10); NRBC Flagged by Analyzer 0 % (0-5); Neutrophil # 4.92 X10^3/uL (2.7-7.7); Neutrophil % 57.1 % (47-70); Platelet Count 241 K/mm3 (150-450); RBC Distribution Width CV 12.9 % (11.6-14.6); RBC Distribution Width SD 43.8 fl (35.1-43.9); Red Blood Count 4.42 M/mm3 (4.6-6.2); White Blood Count 8.6 K/mm3 (4.4-11.0)
[2023-06-15 07:05] LABS: Anion Gap 4 (5-15); BUN 22 mg/dL (7-18); BUN/Creat Ratio 18.3 RATIO (10-20); Calcium,Total 8.5 mg/dL (8.5-10.1); Chloride 108 mmol/L (98-107); EST Glomerular Filtration Rate 65 mL/min (>60); Est Glom Filt Rate - Afr Amer 79 mL/min (>60); Estimated Creatinine Clearance 73.06 ml/min; Glucose 112 mg/dL (74-106); Potassium 3.7 mmol/L (3.5-5.1); Sodium Level 139 mmol/L (136-145)
--- NOTE | 2023-06-15 07:35 | RAD_ITS ---
HISTORY: I D INCISION OF BONE CORTEX. TECHNIQUE: 2 spot images. COMPARISON: None. FINDINGS: OSSEOUS STRUCTURES: Marker or metallic density overlying the second metatarsal head. Partial amputation of the first toe. FLUOROSCOPY TIME: 2 seconds. RADIATION DOSE: 0.01 mGy. RAD/Foot min 3 Views IMPRESSION: Image guidance for procedure of the right foot. Please refer to operative note. Electronically Signed: Holly Zee MD at 9:52 EDT ,
--- NOTE | 2023-06-15 08:04 | PN.HOSP_ITS ---
Subjective Subjective Doing well, no issues overnight. Plan for surgery today Objective Data Objective Data Vital Signs: Vital Signs Temp Pulse Resp BP Pulse Ox O2 Del Method 98.1 F 61 18 128/79 H 98 Room Air 06/15/23 06:29 06/15/23 06:29 06/15/23 06:29 06/15/23 06:29 06/15/23 06:29 06/15/23 06:29 Oxygen Delivery Method Room Air Weight: 264 lb 8.875 oz Body Mass Index (BMI) 34.9 Intake & Output: Intake and Output for Last 24 Hours 06/14/23 06/15/23 06/16/23 03:59 03:59 03:59 Intake Total 1825 / 1825 Balance 1825 / 1825 Lab / Micro Data 06/15/23 06:00 06/15/23 06:00 Labs: Laboratory Results - last 24 hr 06/14/23 10:05: WBC 7.1, RBC 4.83, Hgb 14.7, Hct 44.3, MCV 91.7, MCH 30.4, MCHC 33.2, RDW Std Deviation 43.1, RDW Coeff of Mikie 12.9, Plt Count 261, MPV 9.2, Immature Gran % (Auto) 0.400, Neut % (Auto) 60.0, Lymph % (Auto) 24.4, [place] % (Auto) 10.0, Eos % (Auto) 4.8, Baso % (Auto) 0.4, Absolute Neuts (auto) 4.3, Absolute Lymphs (auto) 1.73, Nucleated RBC % 0, ESR 7, Sodium 138, Potassium 3.5, Chloride 106, Carbon Dioxide 27.0, Anion Gap 5, BUN 23 H, Creatinine 1.17, Estim Creat Clear Calc 74.93, Est GFR (MDRD) Af Amer 81, Est GFR (MDRD) Non-Af 67, BUN/Creatinine Ratio 19.7, Glucose 104, Calcium 9.2, C-React Prot Ext Range 9.76 H 06/15/23 06:00: WBC 8.6, RBC 4.42 L, Hgb 14.0, Hct 41.0, MCV 92.8, MCH 31.7, MCHC 34.1, RDW Std Deviation 43.8, RDW Coeff of Mikie 12.9, Plt Count 241, MPV 8.8, Immature Gran % (Auto) 0.200, Neut % (Auto) 57.1, Lymph % (Auto) 26.4, [place] % (Auto) 10.5 H, Eos % (Auto) 5.5 H, Baso % (Auto) 0.3, Absolute Neuts (auto) 4.9, Absolute Lymphs (auto) 2.27, Nucleated RBC % 0, Sodium 139, Potassium 3.7, Chloride 108 H, Carbon Dioxide 27.0, Anion Gap 4 L, BUN 22 H, Creatinine 1.20, Estim Creat Clear Calc 73.06, Est GFR (MDRD) Af Amer 79, Est GFR (MDRD) Non-Af 65, BUN/Creatinine Ratio 18.3, Glucose 112 H, Calcium 8.5 Physical Exam Narrative General: Alert, Oriented x3, Cooperative, No apparent distress HEENT: Atraumatic, PERRLA, EOMI, Normocephalic Oral: Moist Mucosa Neck: Supple, No JVD Lungs: Clear to auscultation, Normal air movement, No rhonchi, No wheeze, No rales Cardiovascular: Regular rate, Regular Rhythm, Normal S1, Normal S2, No murmurs Abdomen: Soft, Non Tender, Non-Distended, No Hepato-splenomegaly Extremities: No edema, Capillary Refill Less than 3 Seconds Skin: Right great toe with increased redness and swelling, currently dressed Musculoskeletal: No Tenderness to Palpation of Joints or Extremities Neurological: Cranial nerves II-XII grossly intact, Motor Exam 5/5 strength throughout, Sensory exam intact to light touch and pain Psych/Mental Status: Normal Affect, Appropriate Assessment & Plan Assessment/Plan (1) Osteomyelitis of great toe of right foot: PLAN: Plan 1. Right great toe osteomyelitis ? Diagnosis per podiatry ? We will consult for operative intervention ? Continue with vancomycin and Zosyn 2. Hypertension ? Stable ? Can home medications, will monitor and make adjustments as necessary 3. Anxiety/depression ? Stable ? Continue with Zoloft 4. BPH ? Stable ? Continue with Flomax 5. Chronic herpes ? 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 Continue with valacyclovir DVT: Lovenox Charges/Coding Visit Charges Inpatient E&M: 66248 Subs Hosp L2
[2023-06-15] MEDS: Bupivacaine Mpf 0.5% 30 ML VIAL (08:15)
--- NOTE | 2023-06-15 09:08 | NURSING ---
0730-pt off unit for scheduled surgery
--- NOTE | 2023-06-15 09:12 | OP.PCM_ITS ---
Problems Associated Problem List Diagnoses (1) Osteomyelitis of great toe of right foot: (2) Chronic ulcer of right great toe: (3) Radiculopathy: Report of Operation Date of Procedure: 06/15/23 Pre-Operative Diagnosis: 1. Osteomyelitis, distal phalanx, right hallux 2. Full-thickness ulceration, right hallux 3. Abscess, right hallux Post-Operative Diagnosis: 1. Osteomyelitis, distal phalanx, right hallux 2. Full-thickness ulceration, right hallux 3. Abscess, right hallux Surgery/Procedure Performed:: 1. Incision and drainage, right hallux 2. Incision of bone cortex, distal phalanx, right hallux 3. Advancement flap, right hallux Description of Surgical Findings:: 1. Evidence of periosteal reaction appreciated to the distal tuft of the right hallux. 2. Complete removal of osteomyelitis right hallux. 3. No loss of architecture or softness to the articular surface/head of the proximal phalanx, right hallux 4. Palpation of proximal phalanx with Guy showed integrity to the cortex, right hallux 5. Excision of the full-thickness ulceration to the right hallux with advanced flap closure. Surgeon: Les Reynoso crusher foreman: None Type of Anesthesia: Block,Regional and MAC Special Medications: None Specimen's removed: 1. Prelavage cultures right hallux 2. Post lavage cultures right hallux 3. Bone to be sent to microbiology for culture and sensitivity right hallux 4. Bone to be sent to pathology right hallux 5. Clean margin of bone to be sent to pathology right hallux Drains: None Estimated Blood Loss (mL): 20 cc Fluids Replaced: Per anesthesia Description of Procedure: Indications For Operation: This is a 63-year-old nondiabetic male who was admitted to [facility] for osteomyelitis and full-thickness ulceration to the right hallux. Patient failed 2 rounds of doxycycline as an outpatient with localized wound care. The patient had showed evidence of worsening osteomyelitis confirmed via x-ray in office in more than 2 planes/views. Due to the concern for worsening osteomyelitis, cellulitis with proximal streaking of the right hallux, it was deemed necessary at this time to send the patient to the emergency department for admission, IV antibiotics and plan for incision and drainage, incision of bone cortex with advancement flap of the right hallux to relieve his worsening infection. The nature of the problem, anticipated procedures, postop recovery/convalences and risk/complications include but not limited to infection, wound healing complications, hypertrophic scarring, numbness, tingling, chronic pain, CRPS, over and under correction, recurrence of deformity, DVT and or PE and the need for further surgery have been discussed in great detail with the patient. All questions have been answered to the patient's satisfaction. There are no guarantees given as to the outcome of the procedure. Description of Procedure: Under mild sedation, the patient was brought into the operating room and placed on the operating table in supine position. Once the patient was under monitored anesthesia care, the right lower extremity was blocked using approximately 20 cc 0.5% Marcaine plain. Next, a timeout was then undertaken verifying the correct patient, extremity, visibility of preoperative markings, availability of the equipment. The patient was given Zosyn at time of surgery in addition to scheduled IV antibiotics on the floor. A well-padded calf tourniquet was used. Next using a 4 inch sterile Esmarch the right lower extremity was exsanguinated and elevated for approximately 1 minute prior to inflating the Tourniquet to 250 mmHg. Next, attention was directed to the right hallux. Using a #15 blade, a trapdoor type incision for incision and drainage, was placed encompassing the nailbed of the right hallux. Using pickups and a 15 blade continued dissection was carried to the level of the distal phalanx with complete removal of the dorsal skin and nailbed. The excess skin was passed to the back table to be discarded. There showed no evidence of purulent drainage at that time. Next incision of bone cortex was done using a pickup and 15 blade with complete removal of the distal phalanx of the right hallux. There showed evidence of softness with periosteal reaction to the distal tuft, distal phalanx of the right hallux. Continued incision of bone cortex with bone cutters were used to separate the distal tuft upon which half would go to microbiology for culture and sensitivity and the other half going to pathology. A clean margin of the distal phalanx was also from the proximal bone to be sent off to pathology. Prelavage cultures were taken at this time to be sent off for microbiology culture and sensitivity. Next, the open incision was pulsed via pulse lavage using 1000 cc of warm normal saline to mechanically debride the open incision. After the pulse lavage, the wound bed/incision opening showed evidence of 100% granular tissue with no evidence of further infection. Post lavage cultures were taken at this time to be sent off for microbiology culture and sensitivity. At this time using a Guy, the integrity of the articular surface of the proximal phalanx was examined and showed no evidence of softening or loss of architecture distally as well as proximally. Due to the fact that there showed no evidence of remaining osteomyelitis or concerns for infection it was determined at this time to move forward with advancement flap closure of the right hallux. Next, using a 15 blade the full-thickness ulceration was excised in V-shaped fashion to allow for complete closure with advancement flap of the distal tuft/remaining skin. Using scissors, the distal flap was reapproximated and trimmed down with good apposition to the proximal skin. The well-padded calf tourniquet was deflated and showed excellent reperfusion to the right lower extremity as well as right hallux flap. The remaining skin flap was reapproximated using 3-0 Vicryl in buried suture technique. The skin was brought together and reapproximated with 2-0 nylon in simple interrupted suture technique with care to to keep the knots off the flap. The right lower extremity was wiped clean and patted dry. The incision was dressed with Betadine soaked Adaptic, 4 x 4's, Modesta wrap, cast padding and one 4 inch Ramiro bandage. The patient tolerated the procedure and anesthesia well in apparent satisfactory condition and was transported to the PACU for further monitoring prior to discharge back to the floor. Vital signs stable and vascular status intact to all digits bilateral. Post Operative Plan: Weightbearing: Partial weightbearing to right heel only Antibiotics: IV antibiotics on the floor, vancomycin and Zosyn DVT Prophylaxis: Lovenox 40 mg daily Dickey: None Dressing: Betadine soaked Adaptic, 4 x 4's, Modesta wrap and 4 inch Ramiro bandage. X-Rays: 1 postoperative x-ray to confirm complete removal of the distal phalanx and osteomyelitis Pain Medication: Percocet 5/325 every 6 hours as needed, Dilaudid 0.5 mg every 4 hours as needed Follow-up: Plan to keep patient in the hospital over the weekend for continued IV antibiotics until microbiology cultures as well as pathology returns. Plan for discharge either Saturday versus Saturday. Grafts/Implants Used: None Complications No complications were noted Admit VTE Documentation VTE Present on Admission: No VTE Mechan Device Prophylaxis: SCD's VTE Pharm Prophylaxis ordered?: Yes
[2023-06-15] MEDS: Lisinopril 5 MG Tablet PO (10:02)
[2023-06-15] MEDS: Sertraline 50 MG Tablet 25 MG PO (10:02)
[2023-06-15] MEDS: hydroCHLOROthiazide 25 MG Tablet PO (10:03)
[2023-06-15] MEDS: Enoxaparin 40 MG/0.4 ML Syringe SC (10:03)
[2023-06-15] MEDS: Vancomycin HCl 2,000 MG in 0.9% Normal Saline (500mL Bag) 500 ML 250 MG IV (10:14)
[2023-06-15] MEDS: Acyclovir 200 MG Capsule 400 MG PO ×2 (13:40→21:12)
[2023-06-15] MEDS: Tamsulosin HCl 0.4 MG Capsule PO (21:12)
[2023-06-15] MEDS: Oxycodone/Apap 5/325 Tablet PO (21:12)
[2023-06-15 23:28] LABS: Vancomycin, Trough Level 17.1 ug/mL (5.0-15.0)
--- NOTE | 2023-06-16 00:05 | PCM.RX.CS ---
Consult Antibiotic Management Pharmacy has been consulted to manage selected antiobiotic: Vancomycin Type of Intervention Type of Consult: Follow-up Suspected Infection Suspected Infection: Osteomyelitis Labs Labs: Sodium 139 mmol/L (136-145) 06/15/23 06:00 Potassium 3.7 mmol/L (3.5-5.1) 06/15/23 06:00 Chloride 108 mmol/L (98-107) H 06/15/23 06:00 Carbon Dioxide 27.0 mmol/L (21.0-32.0) 06/15/23 06:00 Anion Gap 4 (5-15) L 06/15/23 06:00 BUN 22 mg/dL (7-18) H 06/15/23 06:00 Creatinine 1.20 mg/dL (0.70-1.30) 06/15/23 06:00 Est GFR (MDRD) Af Amer 79 mL/min (>60) 06/15/23 06:00 Est GFR (MDRD) Non-Af 65 mL/min (>60) 06/15/23 06:00 BUN/Creatinine Ratio 18.3 RATIO (10-20) 06/15/23 06:00 Glucose 112 mg/dL (74-106) H 06/15/23 06:00 Vancomycin Trough 17.1 ug/mL (5.0-15.0) H 06/15/23 22:30 Microbiology Microbiology: Microbiology 06/15/23 Unknown Bone - Great Toe Gram Stain - Final 06/15/23 Unknown Bone - Great Toe Gram Stain - Final 06/15/23 Unknown Bone - Great Toe Gram Stain - Final 06/14/23 15:40 Wound Drainage - Toe Gram Stain - Final 06/14/23 15:40 Wound Drainage - Toe Wound Culture - Preliminary Staphylococcus species Dosing Weight Weight used for dosin kg Estimated Creatinine Clearance Estimated Creatinine Clearance: 88 Goal Trough Goal Trough: 15-20 mcg/mL Pharmacy Plan for Drug Dosing Pharmacy Plan for Drug Dosing: Vancomycin trough level of 17.1 was within the target range of 15-20. Will continue dosing at 2000mg q12h, and will draw another trough in two days. Pharmacy Service will continue to monitor and adjust dosing as required. Follow-Up Labs Follow-Up Labs: Trough: Vancomycin Date/Time Labs Ordered Labs to be done on [date and time ordered]: 06/17/23 @0737
[2023-06-16] MEDS: Vancomycin HCl 2,000 MG in 0.9% Normal Saline (500mL Bag) 500 ML 250 MG IV ×3 (00:09→22:55)
[2023-06-16] MEDS: Oxycodone/Apap 5/325 Tablet PO ×3 (03:58→18:06)
[2023-06-16 04:00] VITALS: BP 119/67; PULSE 68; RESP 18; TEMP 36.8; O2SAT 96
[2023-06-16 05:46] LABS: Absolute Lymphocyte Count 2.21 X10^3/uL (0.83-4.51); Absolute Neutrophil Count 6.8 X10^3/uL (2.0-7.7); Basophil# 0.03 X10^3/uL; Basophil% 0.3 % (0-1); Eosinophil# 0.38 X10^3/uL; Eosinophils% 3.6 % (0-5); Hematocrit 40.2 % (40-54); Hemoglobin 13.5 g/dL (13.0-16.5); Lymphocyte # 2.21 X10^3/ul (0.83-4.51); Lymphocyte % 20.8 % (19-41); Mean Corp Hgb Conc 33.6 g/dL (32-36); Mean Corpuscular Hgb 31.2 pg (27.0-32.0); Mean Corpuscular Volume 92.8 fL (80-94); Mean Platelet Vol. 9.2 fl (6.2-12.0); Monocyte# 1.13 X10^3/uL; Monocyte% 10.7 % (0-10); NRBC Flagged by Analyzer 0 % (0-5); Neutrophil # 6.83 X10^3/uL (2.7-7.7); Neutrophil % 64.3 % (47-70); Platelet Count 261 K/mm3 (150-450); RBC Distribution Width CV 12.8 % (11.6-14.6); RBC Distribution Width SD 43.4 fl (35.1-43.9); Red Blood Count 4.33 M/mm3 (4.6-6.2); White Blood Count 10.6 K/mm3 (4.4-11.0)
[2023-06-16 06:26] LABS: Anion Gap 4 (5-15); BUN 23 mg/dL (7-18); BUN/Creat Ratio 21.7 RATIO (10-20); Calcium,Total 8.8 mg/dL (8.5-10.1); Chloride 107 mmol/L (98-107); Creatinine, Serum 1.06 mg/dL (0.70-1.30); EST Glomerular Filtration Rate 75 mL/min (>60); Est Glom Filt Rate - Afr Amer 91 mL/min (>60); Estimated Creatinine Clearance 82.71 ml/min; Glucose 112 mg/dL (74-106); Potassium 3.7 mmol/L (3.5-5.1); Sodium Level 137 mmol/L (136-145)
[2023-06-16] MEDS: Piperacil/Tazobactam 3.375 GM in 0.9% Normal Saline (50mL MB+) 50 ML IV ×3 (06:41→22:56)
[2023-06-16] MEDS: Acyclovir 200 MG Capsule 400 MG PO ×3 (06:41→21:31)
[2023-06-16] MEDS: 0.9% Saline Lock 10 ML Syringe IV ×2 (08:23→10:11)
[2023-06-16] MEDS: HYDROmorphone 0.5 MG/0.5 ML SYRINGE IV (08:23)
[2023-06-16] MEDS: Enoxaparin 40 MG/0.4 ML Syringe SC (08:24)
[2023-06-16] MEDS: Sertraline 50 MG Tablet 25 MG PO (08:25)
[2023-06-16 08:30] VITALS: BP 134/65; PULSE 91; RESP 17; TEMP 36.7; O2SAT 97
--- NOTE | 2023-06-16 08:38 | PN.HOSP_ITS ---
Subjective Subjective Doing well, no issues overnight Objective Data Objective Data Vital Signs: Vital Signs Temp Pulse Resp BP Pulse Ox O2 Del Method 98.2 F 68 18 119/67 96 Room Air 06/16/23 04:00 06/16/23 04:00 06/16/23 04:00 06/16/23 04:00 06/16/23 04:00 06/16/23 04:00 Oxygen Delivery Method Room Air Weight: 264 lb 8.875 oz Body Mass Index (BMI) 34.9 Intake & Output: Intake and Output for Last 24 Hours 06/15/23 06/16/23 06/17/23 03:59 03:59 03:59 Intake Total 1825 / 1825 1530 / 1530 Balance 1825 / 1825 1530 / 1530 Lab / Micro Data 06/16/23 04:18 06/16/23 04:18 Labs: Laboratory Results - last 24 hr 06/15/23 22:30: Vancomycin Trough 17.1 H 06/16/23 04:18: WBC 10.6, RBC 4.33 L, Hgb 13.5, Hct 40.2, MCV 92.8, MCH 31.2, MCHC 33.6, RDW Std Deviation 43.4, RDW Coeff of Mikie 12.8, Plt Count 261, MPV 9.2, Immature Gran % (Auto) 0.300, Neut % (Auto) 64.3, Lymph % (Auto) 20.8, [place] % (Auto) 10.7 H, Eos % (Auto) 3.6, Baso % (Auto) 0.3, Absolute Neuts (auto) 6.8, Absolute Lymphs (auto) 2.21, Nucleated RBC % 0, Sodium 137, Potassium 3.7, Chloride 107, Carbon Dioxide 26.0, Anion Gap 4 L, BUN 23 H, Creatinine 1.06, Estim Creat Clear Calc 82.71, Est GFR (MDRD) Af Amer 91, Est GFR (MDRD) Non-Af 75, BUN/Creatinine Ratio 21.7 H, Glucose 112 H, Calcium 8.8 Micro: Microbiology 06/15/23 Unknown Bone - Great Toe Gram Stain - Final 06/15/23 Unknown Bone - Great Toe Gram Stain - Final 06/15/23 Unknown Bone - Great Toe Gram Stain - Final 06/14/23 15:40 Wound Drainage - Toe Gram Stain - Final 06/14/23 15:40 Wound Drainage - Toe Wound Culture - Preliminary Staphylococcus species Radiography Diagnostic Testing: Radiology Impression Foot X-Ray 06/15/23 07:35 IMPRESSION: Image guidance for procedure of the right foot. Please refer to operative note. Electronically Signed: Holly Zee MD at 9:52 EDT , Physical Exam Narrative General: Alert, Oriented x3, Cooperative, No apparent distress HEENT: Atraumatic, PERRLA, EOMI, Normocephalic Oral: Moist Mucosa Neck: Supple, No JVD Lungs: Clear to auscultation, Normal air movement, No rhonchi, No wheeze, No rales Cardiovascular: Regular rate, Regular Rhythm, Normal S1, Normal S2, No murmurs Abdomen: Soft, Non Tender, Non-Distended, No Hepato-splenomegaly Extremities: No edema, Capillary Refill Less than 3 Seconds Skin: Right great toe currently dressed Musculoskeletal: No Tenderness to Palpation of Joints or Extremities Neurological: Cranial nerves II-XII grossly intact, Motor Exam 5/5 strength throughout, Sensory exam intact to light touch and pain Psych/Mental Status: Normal Affect, Appropriate Assessment & Plan Assessment/Plan (1) Osteomyelitis of great toe of right foot: PLAN: Plan 1. Right great toe osteomyelitis status post I&D of right hallux on 06/15/2023 ? Diagnosis per podiatry ? Doing well, has little bit of pain currently awaiting culture data ? He is stable for discharge whenever podiatry is okay with discharge ? Continue with vancomycin and Zosyn 2. Hypertension ? Stable ? Can home medications, will monitor and make adjustments as necessary 3. Anxiety/depression ? Stable ? Continue with Zoloft 4. BPH ? Stable ? Continue with Flomax 5. Chronic herpes ? 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 Continue with valacyclovir DVT: Lovenox Charges/Coding Visit Charges Inpatient E&M: 43698 Subs Hosp L2
[2023-06-16 14:07] VITALS: BP 123/77; PULSE 66; RESP 14; TEMP 36.7; O2SAT 95
[2023-06-16 21:15] VITALS: BP 111/65; PULSE 64; RESP 18; TEMP 36.8; O2SAT 97
[2023-06-16] MEDS: Tamsulosin HCl 0.4 MG Capsule PO (21:31)
[2023-06-17] MEDS: Oxycodone/Apap 5/325 Tablet PO ×2 (01:52→10:06)
[2023-06-17 02:00] VITALS: BP 135/84; PULSE 68; RESP 18; TEMP 36.7; O2SAT 98
[2023-06-17] MEDS: 0.9% Normal Saline (250mL Bag) 250 ML 15 ML IV (03:09)
[2023-06-17 05:55] LABS: Absolute Lymphocyte Count 2.23 X10^3/uL (0.83-4.51); Absolute Neutrophil Count 4.4 X10^3/uL (2.0-7.7); Basophil# 0.03 X10^3/uL; Basophil% 0.4 % (0-1); Eosinophil# 0.39 X10^3/uL; Eosinophils% 4.9 % (0-5); Hemoglobin 13.2 g/dL (13.0-16.5); Lymphocyte # 2.23 X10^3/ul (0.83-4.51); Lymphocyte % 28.2 % (19-41); Mean Corp Hgb Conc 32.2 g/dL (32-36); Mean Corpuscular Hgb 30.3 pg (27.0-32.0); Mean Corpuscular Volume 94.3 fL (80-94); Monocyte% 11.4 % (0-10); NRBC Flagged by Analyzer 0 % (0-5); Neutrophil # 4.35 X10^3/uL (2.7-7.7); Platelet Count 221 K/mm3 (150-450); RBC Distribution Width CV 12.8 % (11.6-14.6); RBC Distribution Width SD 44.1 fl (35.1-43.9); Red Blood Count 4.35 M/mm3 (4.6-6.2); White Blood Count 7.9 K/mm3 (4.4-11.0)
[2023-06-17] MEDS: Piperacil/Tazobactam 3.375 GM in 0.9% Normal Saline (50mL MB+) 50 ML IV ×2 (06:15→13:57)
[2023-06-17] MEDS: Acyclovir 200 MG Capsule 400 MG PO ×3 (06:16→22:45)
[2023-06-17 07:18] LABS: Anion Gap 4 (5-15); BUN 25 mg/dL (7-18); BUN/Creat Ratio 25.1 RATIO (10-20); Calcium,Total 8.5 mg/dL (8.5-10.1); Chloride 109 mmol/L (98-107); EST Glomerular Filtration Rate 81 mL/min (>60); Est Glom Filt Rate - Afr Amer 98 mL/min (>60); Estimated Creatinine Clearance 87.67 ml/min; Glucose 101 mg/dL (74-106); Potassium 3.8 mmol/L (3.5-5.1); Sodium Level 138 mmol/L (136-145)
--- NOTE | 2023-06-17 08:37 | WOUNDNOTE ---
Dr Reynoso in to change dressing to the right great toe. plan for possible discharge home later today.
--- NOTE | 2023-06-17 08:46 | PCM.PN.SRG ---
Subjective Subjective Mr. Barr is a 63-year-old male seen at bedside today for dressing change. Patient is status post incision and drainage, incision of bone cortex with advancement flap of the right hallux. Date of surgery was 06/15/2023. Patient states he is having some pain that is controlled with oral pain medication. Otherwise he is grateful for his care and recovering well. He is working with physical therapy and limiting his weightbearing to heel only with surgical shoe and walker. He denies constitutional symptoms. No other pedal complaints at this time. Objective Data Objective Data Vital Signs: Vital Signs Temp Pulse Resp BP Pulse Ox O2 Del Method 98.1 F 68 18 135/84 H 98 Room Air 06/17/23 02:00 06/17/23 02:00 06/17/23 02:00 06/17/23 02:00 06/17/23 02:00 06/17/23 02:00 Oxygen Delivery Method Room Air Weight: 120 kg Body Mass Index (BMI) 34.9 Intake & Output: Intake and Output for Last 24 Hours 06/15/23 06/16/23 06/17/23 23:59 23:59 23:59 Intake Total 1530 / 1530 1230 / 1830 1236.5 / 1236.5 Balance 1530 / 1530 1230 / 1830 1236.5 / 1236.5 Lab / Micro Data Attestation: I reviewed the patient's lab results. 06/17/23 05:38 06/17/23 05:38 Labs: Laboratory Results - last 24 hr 06/17/23 05:38: WBC 7.9, RBC 4.35 L, Hgb 13.2, Hct 41.0, MCV 94.3 H, MCH 30.3, MCHC 32.2, RDW Std Deviation 44.1 H, RDW Coeff of Mikie 12.8, Plt Count 221, MPV 9.0, Immature Gran % (Auto) 0.100, Neut % (Auto) 55.0, Lymph % (Auto) 28.2, [place] % (Auto) 11.4 H, Eos % (Auto) 4.9, Baso % (Auto) 0.4, Absolute Neuts (auto) 4.4, Absolute Lymphs (auto) 2.23, Nucleated RBC % 0, Sodium 138, Potassium 3.8, Chloride 109 H, Carbon Dioxide 25.0, Anion Gap 4 L, BUN 25 H, Creatinine 1.00, Estim Creat Clear Calc 87.67, Est GFR (MDRD) Af Amer 98, Est GFR (MDRD) Non-Af 81, BUN/Creatinine Ratio 25.1 H, Glucose 101, Calcium 8.5 Micro: Microbiology 06/14/23 10:45 Blood Culture (Wb) - Left Forearm Blood Culture - Preliminary No growth in 48 hours. 06/14/23 10:05 Blood Culture (Wb) - Arm Left Blood Culture - Preliminary No growth in 48 hours. 06/14/23 15:40 Wound Drainage - Toe Gram Stain - Final 06/14/23 15:40 Wound Drainage - Toe Wound Culture - Preliminary Staphylococcus species Staphylococcus species#2 06/15/23 Unknown Bone - Great Toe Gram Stain - Final 06/15/23 Unknown Bone - Great Toe Wound Culture - Preliminary 06/15/23 Unknown Bone - Great Toe Gram Stain - Final 06/15/23 Unknown Bone - Great Toe Wound Culture - Preliminary Staphylococcus species 06/15/23 Unknown Bone - Great Toe Gram Stain - Final 06/15/23 Unknown Bone - Great Toe Wound Culture - Preliminary Staphylococcus species Physical Exam Narrative Neurovascular status unchanged. Blanchable erythema appreciated to the right hallux tuft. Dactylitis improved to the second digit of the right foot. No evidence of proximal streaking. Advancement flap is well coapted with sutures with sanguinous crust appreciated at the incision. No open lesion, surgical wound dehiscence, drainage, probe to bone or sign of infection. Mild palpatory tenderness appreciated to the incision of the right hallux. No pain with calf compression. Const alert, oriented x3 and no apparent distress Assessment & Plan Assessment/Plan (1) Osteomyelitis of great toe of right foot: PLAN: Patient was examined evaluated. All findings were discussed with the patient. All questions were answered to the patient satisfaction. The patient's right lower extremity dressing was changed today at bedside. Patient is recovering well. The incision was dressed with Betadine soaked Adaptic, dry sterile dressing, Modesta wrap, with 4 inch Ramiro bandage to secure. Patient to be partial weightbearing to heel to right lower extremity with assistance of walker. Pending pathology results as well as final microbiology culture and sensitivity. Pathology: pending Surgical cultures: Bone Cx: Rare Gm(+) Post lavage: Staphylococcus species Pre lavage: Staphylococcus species Wound culture: Staphylococcus species 3+, Staphylococcus species #2, 2+ HbA1c: pending CPR: pending Please reach out to Dr. Les Reynoso for any questions or concerns. I will continue to follow while the patient is house. Once I have the pathology results and final surgical cultures for microbiology I will clear the patient for discharge with recommendations. Thank you for letting me be involved in the patient's care! (2) Chronic ulcer of right great toe: QUALIFIERS: Non-pressure ulcer stage: with fat layer exposed Qualified Code(s): L97.512 - Non-pressure chronic ulcer of other part of right foot with fat layer exposed (3) Radiculopathy: QUALIFIERS: Spinal region: lumbar Qualified Code(s): M54.16 - Radiculopathy, lumbar region
[2023-06-17 09:33] LABS: Hemoglobin A1c 5.7 % (3.8-5.6)
[2023-06-17 09:50] VITALS: BP 121/73; PULSE 72; RESP 18; TEMP 36.8; O2SAT 98
[2023-06-17] MEDS: Sertraline 50 MG Tablet 25 MG PO (10:00)
[2023-06-17] MEDS: hydroCHLOROthiazide 25 MG Tablet PO (10:01)
[2023-06-17] MEDS: Lisinopril 5 MG Tablet PO (10:01)
[2023-06-17] MEDS: Enoxaparin 40 MG/0.4 ML Syringe SC (10:01)
[2023-06-17] MEDS: Vancomycin HCl 2,000 MG in 0.9% Normal Saline (500mL Bag) 500 ML 250 MG IV (11:10)
--- NOTE | 2023-06-17 13:29 | PN_ITS ---
Subjective Subjective Patient seen and examined. was by his bedside. He had no active complaints and had an uneventful night. Review of systems otherwise negative. He has remained hemodynamically stable. Objective Data Objective Data Vital Signs: Vital Signs Temp Pulse Resp BP Pulse Ox O2 Del Method 98.3 F 72 18 121/73 H 98 Room Air 06/17/23 09:50 06/17/23 09:50 06/17/23 09:50 06/17/23 09:50 06/17/23 09:50 06/17/23 09:50 Oxygen Delivery Method Room Air Weight: 264 lb 8.875 oz Body Mass Index (BMI) 34.9 Intake & Output: Intake and Output for Last 24 Hours 06/15/23 06/16/23 06/17/23 23:59 23:59 23:59 Intake Total 1530 / 1530 1230 / 1830 1286.5 / 1286.5 Balance 1530 / 1530 1230 / 1830 1286.5 / 1286.5 Lab / Micro Data 06/17/23 05:38 06/17/23 05:38 Labs: Laboratory Results - last 24 hr 06/17/23 05:38: WBC 7.9, RBC 4.35 L, Hgb 13.2, Hct 41.0, MCV 94.3 H, MCH 30.3, MCHC 32.2, RDW Std Deviation 44.1 H, RDW Coeff of Mikie 12.8, Plt Count 221, MPV 9.0, Immature Gran % (Auto) 0.100, Neut % (Auto) 55.0, Lymph % (Auto) 28.2, Ector % (Auto) 11.4 H, Eos % (Auto) 4.9, Baso % (Auto) 0.4, Absolute Neuts (auto) 4.4, Absolute Lymphs (auto) 2.23, Nucleated RBC % 0, Sodium 138, Potassium 3.8, Chloride 109 H, Carbon Dioxide 25.0, Anion Gap 4 L, BUN 25 H, Creatinine 1.00, Estim Creat Clear Calc 87.67, Est GFR (MDRD) Af Amer 98, Est GFR (MDRD) Non-Af 81, BUN/Creatinine Ratio 25.1 H, Glucose 101, Hemoglobin A1c 5.7 H, Calcium 8.5, C-React Prot Ext Range 29.40 H Micro: Microbiology 06/15/23 Unknown Bone - Great Toe Gram Stain - Final 06/15/23 Unknown Bone - Great Toe Wound Culture - Preliminary Staphylococcus species 06/15/23 Unknown Bone - Great Toe Anaerobic Culture - Preliminary Checking for anaerobes, further studies to follow. 06/14/23 15:40 Wound Drainage - Toe Gram Stain - Final 06/14/23 15:40 Wound Drainage - Toe Wound Culture - Final Staphylococcus pseudintermediu Staphylococcus epidermidis 06/14/23 15:40 Wound Drainage - Toe Anaerobic Culture - Preliminary Checking for anaerobes, further studies to follow. 06/15/23 Unknown Bone - Great Toe Gram Stain - Final 06/15/23 Unknown Bone - Great Toe Wound Culture - Preliminary Staphylococcus pseudintermediu 06/15/23 Unknown Bone - Great Toe Anaerobic Culture - Preliminary 06/15/23 Unknown Bone - Great Toe Gram Stain - Final 06/15/23 Unknown Bone - Great Toe Wound Culture - Preliminary Staphylococcus species 06/15/23 Unknown Bone - Great Toe Anaerobic Culture - Preliminary Checking for anaerobes, further studies to follow. 06/14/23 10:45 Blood Culture (Wb) - Left Forearm Blood Culture - Preliminary No growth in 48 hours. 06/14/23 10:05 Blood Culture (Wb) - Arm Left Blood Culture - Preliminary No growth in 48 hours. Physical Exam Const alert, oriented x3 and no apparent distress General Appearance: cooperative and well developed HEENT normocephalic, head/scalp atraumatic, moist oral mucous membranes and oropharynx normal Eyes PERRL and EOMs intact bilaterally Neck no lymphadenopathy, supple and no JVD Lymph Lymphatic: no lymphadenopathy noted and no lymphedema noted Resp normal respiratory effort, normal air movement and clear to auscultation bilaterally Cardio regular rate, regular rhythm, S1 normal heart sound, S2 normal heart sound and no murmurs GI normal to inspection, nondistended, normoactive bowel sounds, soft to palpation, non-tender and non-distended Extremity Extremity Narrative: right big toe wrapped in bandage Neuro CN's II-XII intact bilaterally, no focal motor deficits, no sensory deficits noted and deep tendon reflexes 2+ bilaterally Coordination / Balance: [id number] test normal Motor Exam: strength 5/5 throughout Psych thought process normal, cooperative and affect normal Appearance: appropriate Assessment & Plan Assessment/Plan (1) Osteomyelitis of great toe of right foot: PLAN: Plan #osteomyelitis of right great toe * s/p I&D on 06/15/2023 * podiatry on board * wound cultures pending * on IV vancomycin and zosyn * final antibiotic rec's depends on sensitivity results * #Hypertension;on lisinopril and HCZ #Hyperlipidemia: on statin #Anxiety and depression: on zoloft. #Chronic herpes simplex virus infection: on valacyclovir DVT prophylaxis: lovenox Charges/Coding Visit Charges Inpatient E&M: 16717 Subs Hosp L2
[2023-06-17] MEDS: 0.9% Saline Lock 10 ML Syringe IV ×2 (13:55→15:30)
[2023-06-17 15:12] VITALS: BP 113/67; PULSE 71; RESP 18; TEMP 36.8; O2SAT 95
--- NOTE | 2023-06-17 16:18 | CON.PCM.ID_ITS ---
Assessment & Plan Assessment/Plan (1) Osteomyelitis of great toe of right foot: PLAN: Taken to OR 06/15/[address] Reynoso for R 1st toe amp. Surg cx and wound cx with MDR-CoNS. Clearance cx also showing staph now. Limited options, but will try to avoid iv abx and send him home with 2 weeks po linezolid. He is to decrease zoloft by half to help decrease risk of serotonin syndrome. Plan will be for 6 weeks total of abx for osteo. Will follow, thank you, d/w primary team and home health care case manager. ID followup in 2 weeks. HPI Consult Data Date of Consult: 06/17/23 HPI Narrative Reason for Consultation: osteo HPI Narrative: ZORAN HAYNES, is a 63 M who presented 06/14 with about 2 months worsening R 1st toe pain, redness, drainage, and ulceration. Had I&D done by Dr. Reynoso, took po doxy for about 3 weeks but sx worsened. Came to ED, admitted, taken to OR 06/15 for toe amputation. Feeling ok, no fever, no n/v/d. Full ROS performed and neg except as noted above. [facility] Medical History Back problem HTN (hypertension) Neuropathy Home Medications sertraline 50 mg tablet 25 mg PO DAILY 06/26/21 [History Last Taken 06/14/23] baclofen 10 mg tablet 10 mg PO BID PRN muscle spasm/pain #180 tabs 12/04/21 [Rx Last Taken 06/14/23] valacyclovir 1 gram tablet 1,000 mg PO BID #180 tabs 12/19/21 [Rx Last Taken 06/14/23] hydrochlorothiazide 25 mg tablet 25 mg PO DAILY 06/14/23 [History Last Taken 06/14/23] lisinopril 5 mg tablet 5 mg PO DAILY 06/14/23 [History Last Taken 06/14/23] tamsulosin 0.4 mg capsule 0.4 mg PO QHS 06/14/23 [History Last Taken 06/13/23] linezolid 600 mg tablet 600 mg PO Q12H 14 days #28 tabs 06/17/23 [Rx Last Taken Unknown] Allergy/AdvReac Type Severity Reaction Status Date / Time No Known Allergies Allergy Verified 01/12/23 11:56 Family History (Updated 06/14/23 @ 16:[address] Jah Castillo MD) Other Cancer Diabetes Heart disease Surgical History no surgical history Social History Smoking Status: Former smoker Tobacco: How many years used: 5 second hand exposure: No alcohol intake: current alcohol intake frequency: a few times a week substance use type: does not use Physical Exam Const alert, oriented x3 and no apparent distress General Appearance: cooperative HEENT normocephalic and head/scalp atraumatic Eyes PERRL and EOMs intact bilaterally Neck supple and No nodes Resp normal air movement and clear to auscultation bilaterally Cardio regular rate and regular rhythm GI soft to palpation, non-tender and non-distended Extremity General Extremity: Negative for edema Skin Skin Narrative: reviewed photos of maru Neuro CN's II-XII intact bilaterally Lab / Micro Data Attestation: I reviewed the patient's lab results. 06/17/23 05:38 06/17/23 05:38 Labs: Laboratory Results - last 24 hr 06/17/23 05:38: WBC 7.9, RBC 4.35 L, Hgb 13.2, Hct 41.0, MCV 94.3 H, MCH 30.3, MCHC 32.2, RDW Std Deviation 44.1 H, RDW Coeff of Mikie 12.8, Plt Count 221, MPV 9.0, Immature Gran % (Auto) 0.100, Neut % (Auto) 55.0, Lymph % (Auto) 28.2, Hawkins % (Auto) 11.4 H, Eos % (Auto) 4.9, Baso % (Auto) 0.4, Absolute Neuts (auto) 4.4, Absolute Lymphs (auto) 2.23, Nucleated RBC % 0, Sodium 138, Potassium 3.8, Chloride 109 H, Carbon Dioxide 25.0, Anion Gap 4 L, BUN 25 H, Creatinine 1.00, Estim Creat Clear Calc 87.67, Est GFR (MDRD) Af Amer 98, Est GFR (MDRD) Non-Af 81, BUN/Creatinine Ratio 25.1 H, Glucose 101, Hemoglobin A1c 5.7 H, Calcium 8.5, C-React Prot Ext Range 29.40 H Micro: Microbiology 06/15/23 Unknown Bone - Great Toe Gram Stain - Final 06/15/23 Unknown Bone - Great Toe Wound Culture - Preliminary Staphylococcus species 06/15/23 Unknown Bone - Great Toe Anaerobic Culture - Preliminary Checking for anaerobes, further studies to follow. 06/14/23 15:40 Wound Drainage - Toe Gram Stain - Final 06/14/23 15:40 Wound Drainage - Toe Wound Culture - Final Staphylococcus pseudintermediu Staphylococcus epidermidis 06/14/23 15:40 Wound Drainage - Toe Anaerobic Culture - Preliminary Checking for anaerobes, further studies to follow. 06/15/23 Unknown Bone - Great Toe Gram Stain - Final 06/15/23 Unknown Bone - Great Toe Wound Culture - Preliminary Staphylococcus pseudintermediu 06/15/23 Unknown Bone - Great Toe Anaerobic Culture - Preliminary 06/15/23 Unknown Bone - Great Toe Gram Stain - Final 06/15/23 Unknown Bone - Great Toe Wound Culture - Preliminary Staphylococcus species 06/15/23 Unknown Bone - Great Toe Anaerobic Culture - Preliminary Checking for anaerobes, further studies to follow.
--- NOTE | 2023-06-17 17:30 | CASEMGMT ---
Addendum entered by Denise Kirk 06/17/23 19:26: 1800: Call to [facility] retail pharmacy for mena check on linezolid. Per Adonay, pt's cost is $10. Original Note: NABIL CHEEMA note: Dr Laguerre has e-scribed linezolid PO to [facility]. [facility] needed. Per pharmacy, no prior auth is needed, but they do not have linezolid in stock. Call to [facility] retail pharmacy and the do have it in stock. Pt made aware and states okay to send to [facility] Retail pharmacy. Call to Adonay @ [facility] Retail pharmacy who states will call [facility] to have Rx transferred. Per Dr Hendrix, pt can be discharged today if Dr Reynoso agreeable. Message sent to Dr Reynoso who states prefers pt not be discharged until tomorrow. Dr Hendrix and pt and all made aware. Rosamaria MUNIZ RN, CM
[2023-06-17 22:45] VITALS: BP 136/86; PULSE 68; RESP 16; TEMP 36.4; O2SAT 98
[2023-06-17] MEDS: Tamsulosin HCl 0.4 MG Capsule PO (22:45)
[2023-06-17 23:10] LABS: Vancomycin, Trough Level 22.7 ug/mL (5.0-15.0)
--- NOTE | 2023-06-17 23:17 | PCM.RX.CS ---
Consult Pharmacy has been consulted to manage selected antiobiotic: Vancomycin Type of Consult: Follow-up Prior Doses of Antibiotics Received/Current Regimen: Medications Discontinued Medications Vancomycin HCl 2,000 mg/ (Sodium Chloride) 540 mls @ 250 mls/hr IV Q12H NATHALY Last Admin: 06/17/23 13:34 Dose: Infused Labs: Sodium 138 mmol/L (136-145) 06/17/23 05:38 Potassium 3.8 mmol/L (3.5-5.1) 06/17/23 05:38 Chloride 109 mmol/L (98-107) H 06/17/23 05:38 Carbon Dioxide 25.0 mmol/L (21.0-32.0) 06/17/23 05:38 Anion Gap 4 (5-15) L 06/17/23 05:38 BUN 25 mg/dL (7-18) H 06/17/23 05:38 Creatinine 1.00 mg/dL (0.70-1.30) 06/17/23 05:38 Est GFR (MDRD) Af Amer 98 mL/min (>60) 06/17/23 05:38 Est GFR (MDRD) Non-Af 81 mL/min (>60) 06/17/23 05:38 BUN/Creatinine Ratio 25.1 RATIO (10-20) H 06/17/23 05:38 Glucose 101 mg/dL (74-106) 06/17/23 05:38 Vancomycin Trough 22.7 ug/mL (5.0-15.0) H 06/17/23 22:38 Microbiology: Microbiology 06/15/23 Unknown Bone - Great Toe Gram Stain - Final 06/15/23 Unknown Bone - Great Toe Wound Culture - Preliminary Staphylococcus species 06/15/23 Unknown Bone - Great Toe Anaerobic Culture - Preliminary Checking for anaerobes, further studies to follow. 06/14/23 15:40 Wound Drainage - Toe Gram Stain - Final 06/14/23 15:40 Wound Drainage - Toe Wound Culture - Final Staphylococcus pseudintermediu Staphylococcus epidermidis 06/14/23 15:40 Wound Drainage - Toe Anaerobic Culture - Preliminary Checking for anaerobes, further studies to follow. 06/15/23 Unknown Bone - Great Toe Gram Stain - Final 06/15/23 Unknown Bone - Great Toe Wound Culture - Preliminary Staphylococcus pseudintermediu 06/15/23 Unknown Bone - Great Toe Anaerobic Culture - Preliminary 06/15/23 Unknown Bone - Great Toe Gram Stain - Final 06/15/23 Unknown Bone - Great Toe Wound Culture - Preliminary Staphylococcus species 06/15/23 Unknown Bone - Great Toe Anaerobic Culture - Preliminary Checking for anaerobes, further studies to follow. 06/14/23 10:45 Blood Culture (Wb) - Left Forearm Blood Culture - Preliminary No growth in 48 hours. 06/14/23 10:05 Blood Culture (Wb) - Arm Left Blood Culture - Preliminary No growth in 48 hours. Weight used for dosin kg Goal Trough: 15-20 mcg/mL Pharmacy Plan for Drug Dosing: Trough above goal. Hold dose and re-start tomorrow morning at 1500mg IV q12h with trough prior to 4th new dose. Pharmacy Service will continue to monitor and adjust dosing as required. Follow-Up Labs: Trough Vancomycin - 06/19 @ 1730
[2023-06-18 06:00] VITALS: BP 95/56; PULSE 63; RESP 16; TEMP 36.2; O2SAT 98
[2023-06-18] MEDS: Vancomycin HCl 1,500 MG in 0.9% Normal Saline (500mL Bag) 500 ML 250 MG IV (06:05)
[2023-06-18] MEDS: 0.9% Saline Lock 10 ML Syringe IV (06:05)
[2023-06-18] MEDS: Acyclovir 200 MG Capsule 400 MG PO (06:12)
[2023-06-18 09:30] VITALS: BP 122/65; PULSE 74; RESP 18; TEMP 36.9; O2SAT 97
[2023-06-18] MEDS: Enoxaparin 40 MG/0.4 ML Syringe SC (09:36)
[2023-06-18] MEDS: hydroCHLOROthiazide 25 MG Tablet PO (09:36)
[2023-06-18] MEDS: Sertraline 50 MG Tablet 25 MG PO (09:36)
[2023-06-18] MEDS: Lisinopril 5 MG Tablet PO (09:36)
--- NOTE | 2023-06-18 11:40 | DS.PCM_ITS ---
Providers Date of Admission: 06/14/23 Date of Discharge: 06/18/23 Primary Care Physician: Dr. Per Truong MD Consultations 06/14/23 12:51 Consult: Onc/Wound/mold operator Routine Comment: Consult: Podiatry Routine Consulting Provider: Les Reynoso Reason for Consult: Patient sent in from office EMERGENT Consult: No Notified: Yes Date Notified: 06/14/23 Time Notified: 11:01 Method of Notification: ED Physician Initiated 06/17/23 14:37 Consult: Infectious Disease Routine Consulting Provider: Saul Laguerre Reason for Consult: right great toe osteomyelitis EMERGENT Consult: No Notified: Yes Date Notified: 06/17/23 Time Notified: 14:37 Method of Notification: Verbal Reason For Visit: OSTEO OF TOE Diagnosis Discharge Diagnosis (1) Osteomyelitis of great toe of right foot: Status: Acute Code(s): M86.9 - Osteomyelitis, unspecified Plan #osteomyelitis of right great toe * s/p I&D on 06/15/2023 * podiatry on board * wound cultures pending * on IV vancomycin and zosyn * final antibiotic rec's depends on sensitivity results * #Hypertension;on lisinopril and HCZ #Hyperlipidemia: on statin #Anxiety and depression: on zoloft. #Chronic herpes simplex virus infection: on valacyclovir DVT prophylaxis: lovenox Medications at Discharge Home Medications sertraline 50 mg tablet 25 mg PO DAILY 06/26/21 baclofen 10 mg tablet 10 mg PO BID PRN muscle spasm/pain #180 tabs 12/04/21 valacyclovir 1 gram tablet 1,000 mg PO BID #180 tabs 12/19/21 hydrochlorothiazide 25 mg tablet 25 mg PO DAILY 06/14/23 tamsulosin 0.4 mg capsule 0.4 mg PO QHS 06/14/23 linezolid 600 mg tablet 600 mg PO Q12H 14 days #28 tabs 06/17/23 Hospital Course Operations - (incision and debridement of right hallux abscess) Procedures None Summary of Care Provided Minutes Spent on Discharge: 50 Hospital Course: Patient is a 63 y/o male with a PMh as outlined who was admitted to the hospital after being sent in by his property disposal manager due t a persistent right great toe infection, wtih concern for osteomyelitis. He had been seeing podiatry on outpatient basis for wound care and notices that this was toe was getting more swollen and more red. His property disposal manager reviewed him and thought he should come into the ED for IV antibiotics and possible surgery. He had no fever or chills and had no leukocytosis. He had I&D on 06/15/2023. He was placed on IV vancomycin and Zosyn. Wound cultures grew MDR coagulase-negative staph. ID was consulted and recommended he be discharged home on 2 week course of linezolid. Patient was counseled to reduce Zoloft by half to help decrease risk of serotonin syndrome. If the patient was to have antibiotics for 6 weeks in total. He was discharged on 06/18/2023 and is follow-up with his primary care doctor and podiatry within 1 to 2 weeks. Patient seen and examined prior to discharge. He had no active complaints and had an uneventful night. Review of systems otherwise negative. Labs and vitals reviewed. Medication reviewed and reconciled. Of note, BP had been running low normal, so his lisinopril 5mg daily was discontinued and he was continued on his HCTZ 25mg daily. He is follow-up with his primary care doctor for adjustment of his BP meds as needed. Physical Exam Const alert, oriented x3 and no apparent distress General Appearance: cooperative, comfortable and well developed HEENT normocephalic, head/scalp atraumatic, hearing grossly normal bilaterally, moist oral mucous membranes and oropharynx normal Eyes PERRL and EOMs intact bilaterally Neck no lymphadenopathy, supple and no JVD Lymph Lymphatic: no lymphadenopathy noted and no lymphedema noted Resp normal respiratory effort, normal air movement and clear to auscultation bilaterally Cardio regular rate, regular rhythm, S1 normal heart sound, S2 normal heart sound and no murmurs GI normal to inspection, nondistended, normoactive bowel sounds, soft to palpation, non-tender and non-distended Extremity Extremity Narrative: right big toe wrapped in bandage Skin Skin Narrative: as under extremity Neuro oriented x3, CN's II-XII intact bilaterally, no focal motor deficits, no sensory deficits noted and deep tendon reflexes 2+ bilaterally Coordination / Balance: [id number] test normal Motor Exam: strength 5/5 throughout Psych thought process normal, cooperative and affect normal Appearance: appropriate Weight / BMI Weight Weight: 264 lb 8.875 oz Body Mass Index (BMI) 34.9 ABG / Lab / Microbiology Data 06/17/23 05:38 06/17/23 05:38 Laboratory: Laboratory Results - last 24 hr 06/17/23 22:38: Vancomycin Trough 22.7 H Microbiology: Microbiology 06/15/23 Unknown Bone - Great Toe Gram Stain - Final 06/15/23 Unknown Bone - Great Toe Wound Culture - Final Staphylococcus pseudintermediu Staphylococcus epidermidis 06/15/23 Unknown Bone - Great Toe Gram Stain - Final 06/15/23 Unknown Bone - Great Toe Wound Culture - Final Meth. resistant Staph. aureus Staphylococcus epidermidis 06/15/23 Unknown Bone - Great Toe Anaerobic Culture - Preliminary Checking for anaerobes, further studies to follow. 06/15/23 Unknown Bone - Great Toe Gram Stain - Final 06/15/23 Unknown Bone - Great Toe Wound Culture - Final Meth. resistant Staph. aureus 06/15/23 Unknown Bone - Great Toe Anaerobic Culture - Preliminary Checking for anaerobes, further studies to follow. 06/14/23 15:40 Wound Drainage - Toe Gram Stain - Final 06/14/23 15:40 Wound Drainage - Toe Wound Culture - Final Staphylococcus pseudintermediu Staphylococcus epidermidis 06/14/23 15:40 Wound Drainage - Toe Anaerobic Culture - Preliminary Checking for anaerobes, further studies to follow. 06/14/23 10:45 Blood Culture (Wb) - Left Forearm Blood Culture - Preliminary No growth in 48 hours. 06/14/23 10:05 Blood Culture (Wb) - Arm Left Blood Culture - Preliminary No growth in 48 hours. D/C Instructions Discharge Diet: Low fat / Low cholesterol Discharge Activity: Return to Normal Activity Weight Bearing Status: Weight bearing as tolerated Call your doctor if you observe: Fever of 101 or Higher, Shortness of breath, Dizziness, Swelling in the ankles and Chest pain Meaningful Use Info Meaningful Use Diagnoses (Choose all that apply): None applicable Discharge Plan Admission Admit Date/Time: 06/14/23 10:59 Primary Reason for Your Visit: right great toe osteomyelitis Attending Provider: Rahel Hendrix Primary Care Provider: Per Truong Consulting Providers: Les Reynoso; Jah Castillo; Saul Laguerre Instructions Patient Instructions: Osteomyelitis Dc Discharge Orders/Prescriptions Prescriptions: New linezolid 600 mg tablet 600 mg PO Q12H 14 Days Qty: 28 0RF Continued sertraline 50 mg tablet 25 mg PO DAILY tamsulosin 0.4 mg capsule 0.4 mg PO QHS Patient Comments: take 2 capsules by mouth at bedtime hydrochlorothiazide 25 mg tablet 25 mg PO DAILY Patient Comments: take 1 tablet by mouth once daily baclofen 10 mg tablet 10 mg PO BID PRN (Reason: muscle spasm/pain) Qty: 180 0RF Patient Comments: PT STATES HE HAS ONLY BEEN TAKING 1XD QAM valacyclovir 1 gram tablet 1,000 mg PO BID Qty: 180 0RF Discontinued lisinopril 5 mg tablet 5 mg PO DAILY Patient Comments: take 1 tablet by mouth once daily doxycycline hyclate 100 mg capsule 100 mg PO Q12H Rx Instructions: X10D 06/05 FILL DATE Referrals / Follow Up: Les Reynoso DPM [Med Staff - Active Staff] - 06/25/23 11:00 am Per Truong MD [Primary Care Provider] - Disposition Disposition (needs filled in before D/C Order can be placed): Home, Self Care Charges/Coding Visit Charges Inpatient E&M: 13993 Disch Hosp >30min
== END 2023-06-18 12:45 | disposition home or self-care (01) | DRG 464 ==
LOC: ED 11:04 → MS3 12:29
PROVIDERS: Hospitalist; Podiatrist Foot & Ankle Surgery; Admitting Provider Family Medicine; Emergency Provider Emergency Medicine; PCP Family Medicine; Visit Provider Student in an Organized Health Care Education/Training Program
PROC: 0HXMXZZ Transfer Right Foot Skin, External Approach (ICD-10-PCS; principal; 2023-06-15 07:50)
DX: M86.171 Other acute osteomyelitis, right ankle and foot (principal); L97.516 Non-pressure chronic ulcer of other part of right foot with bone involvement without evidence of necrosis; I10 Essential (primary) hypertension; F32.A Depression, unspecified; E78.5 Hyperlipidemia, unspecified; F41.9 Anxiety disorder, unspecified; M54.16 Radiculopathy, lumbar region; N40.0 Benign prostatic hyperplasia without lower urinary tract symptoms; B00.9 Herpesviral infection, unspecified; B95.7 Other staphylococcus as the cause of diseases classified elsewhere; B95.62 Methicillin resistant Staphylococcus aureus infection as the cause of diseases classified elsewhere; Z79.899 Other long term (current) drug therapy; Z87.891 Personal history of nicotine dependence
CPT/HCPCS: 36415; 73630; 76000; 80048; 80202; 83036; 85025; 85652; 86140; 87015; 87040; 87070; 87075; 87077; 87102; 87116; 87176; 87186; 87205; 87206; 88304; 88305; 88307; 88311; 93005; 97802; 99284; J7040; J7050; A4216; J2405

== ENCOUNTER → 2023-09-27 | Outpatient (CLI) | payer BC, SELFPAY ==
[2023-09-27 17:34] LABS: Absolute Lymphocyte Count 1.85 X10^3/uL (0.83-4.51); Absolute Neutrophil Count 3.4 X10^3/uL (2.0-7.7); Basophil# 0.03 X10^3/uL; Basophil% 0.5 % (0-1); Eosinophil# 0.46 X10^3/uL; Eosinophils% 7.2 % (0-5); Hematocrit 44.2 % (40-54); Hemoglobin 14.6 g/dL (13.0-16.5); Lymphocyte # 1.85 X10^3/ul (0.83-4.51); Lymphocyte % 28.8 % (19-41); Mean Corpuscular Hgb 31.1 pg (27.0-32.0); Mean Platelet Vol. 9.4 fl (6.2-12.0); Monocyte# 0.67 X10^3/uL; Monocyte% 10.4 % (0-10); NRBC Flagged by Analyzer 0 % (0-5); Neutrophil % 52.8 % (47-70); Platelet Count 267 K/mm3 (150-450); RBC Distribution Width CV 13.1 % (11.6-14.6); RBC Distribution Width SD 44.9 fl (35.1-43.9); White Blood Count 6.4 K/mm3 (4.4-11.0)
[2023-09-27 17:54] LABS: AST(SGOT) 22 U/L (15-37); Alanine Aminotransfer ALT/SGPT 39 U/L (16-61); Albumin, Serum 3.5 g/dL (3.2-5.0); Alkaline Phosphatase 80 U/L (45-117); Anion Gap 9 (5-15); BUN 24 mg/dL (7-18); BUN/Creat Ratio 21.1 RATIO (10-20); Calcium,Total 8.7 mg/dL (8.5-10.1); Chloride 107 mmol/L (98-107); Cholesterol 204 mg/dL (200); Creatinine, Serum 1.14 mg/dL (0.70-1.30); EST Glomerular Filtration Rate 69 mL/min (>60); Est Glom Filt Rate - Afr Amer 84 mL/min (>60); Globulin 3.4 g/dL (2.2-4.2); Glucose 106 mg/dL (74-106); High Density Lipoprotein 41 mg/dL; Magnesium 2.4 mg/dL (1.6-2.6); Potassium 3.4 mmol/L (3.5-5.1); Protein, Total 6.9 g/dL (6.4-8.2); Sodium Level 142 mmol/L (136-145); Thyroid Stim Hormone (TSH) 1.93 uIU/mL (0.358-3.74); Triglycerides 230 mg/dL; Very Low Density Lipoprotein 46 mg/dL (5-40)
== END | disposition home or self-care (01) ==
LOC: MFPLAB 15:36
PROVIDERS: PCP Family Medicine; Visit Provider Family Medicine
DX: I10 Essential (primary) hypertension (principal)
CPT/HCPCS: 36415; 80053; 80061; 83735; 84443; 85025

== ENCOUNTER → 2023-11-27 | Outpatient (CLI) | payer BC, SELFPAY ==
[2023-11-27 17:50] LABS: Absolute Lymphocyte Count 1.52 X10^3/uL (0.83-4.51); Absolute Neutrophil Count 4.2 X10^3/uL (2.0-7.7); Basophil# 0.02 X10^3/uL; Basophil% 0.3 % (0-1); Eosinophil# 0.26 X10^3/uL; Eosinophils% 3.9 % (0-5); Hematocrit 44.1 % (40-54); Hemoglobin 14.9 g/dL (13.0-16.5); Lymphocyte # 1.52 X10^3/ul (0.83-4.51); Lymphocyte % 22.9 % (19-41); Mean Corp Hgb Conc 33.8 g/dL (32-36); Mean Corpuscular Hgb 30.2 pg (27.0-32.0); Mean Corpuscular Volume 89.5 fL (80-94); Mean Platelet Vol. 9.5 fl (6.2-12.0); Monocyte# 0.61 X10^3/uL; Monocyte% 9.2 % (0-10); NRBC Flagged by Analyzer 0 % (0-5); Neutrophil # 4.23 X10^3/uL (2.7-7.7); Neutrophil % 63.5 % (47-70); Platelet Count 236 K/mm3 (150-450); RBC Distribution Width CV 12.7 % (11.6-14.6); RBC Distribution Width SD 41.2 fl (35.1-43.9); Red Blood Count 4.93 M/mm3 (4.6-6.2); White Blood Count 6.7 K/mm3 (4.4-11.0)
[2023-11-27 18:40] LABS: ALB/GLOB Ratio 1.1 RATIO (0.9-2.4); AST(SGOT) 29 U/L (15-37); Alanine Aminotransfer ALT/SGPT 41 U/L (16-61); Albumin, Serum 3.8 g/dL (3.2-5.0); Alkaline Phosphatase 74 U/L (45-117); Anion Gap 7 (5-15); BUN 19 mg/dL (7-18); BUN/Creat Ratio 16.7 RATIO (10-20); Calcium,Total 9.9 mg/dL (8.5-10.1); Chloride 106 mmol/L (98-107); Cholesterol 209 mg/dL (200); Creatinine, Serum 1.14 mg/dL (0.70-1.30); EST Glomerular Filtration Rate 69 mL/min (>60); Est Glom Filt Rate - Afr Amer 84 mL/min (>60); Globulin 3.4 g/dL (2.2-4.2); Glucose 108 mg/dL (74-106); High Density Lipoprotein 42 mg/dL; Potassium 3.8 mmol/L (3.5-5.1); Protein, Total 7.2 g/dL (6.4-8.2); Sodium Level 138 mmol/L (136-145); Thyroid Stim Hormone (TSH) 1.17 uIU/mL (0.358-3.74); Triglycerides 120 mg/dL; Very Low Density Lipoprotein 24 mg/dL (5-40)
== END | disposition home or self-care (01) ==
LOC: MFPLAB 15:51
PROVIDERS: PCP Family Medicine; Visit Provider Family Medicine
DX: I10 Essential (primary) hypertension (principal)
CPT/HCPCS: 36415; 80053; 80061; 83735; 84443; 85025

== ENCOUNTER 2023-12-18 06:54 | Day surgery (SDC) | payer BC, SELFPAY ==
[2023-12-18] VITALS (7 sets, daily range): BP systolic 125–133; BP diastolic 76–86; PULSE 72–79; RESP 16; TEMP 36.2–36.9; O2SAT 94–98; BMI 36.6
[2023-12-18] MEDS: Lactated Ringers 1,000 ML 15 ML IV (07:34)
[2023-12-18] MEDS: Magnesium 1 GM over 15 mins IV (07:34)
[2023-12-18] MEDS: Gabapentin 600 MG Tablet PO (07:34)
[2023-12-18] MEDS: Acetaminophen 500 MG Tablet 1000 MG PO (07:34)
[2023-12-18 07:52] LABS: Bedside Glucose 145 mg/dL (74-106)
--- NOTE | 2023-12-18 08:44 | PCM.OPRPT ---
Problems Associated Problem List Diagnoses (1) Other hammer toe(s) (acquired), right foot: (2) Laceration without foreign body of right lesser toe(s) with damage to nail, initial encounter: Report of Operation Date of Procedure: 12/18/23 Pre-Operative Diagnosis: 1. Hammertoe, second digit, right foot 2. Laceration without foreign body, second digit, right foot Post-Operative Diagnosis: Same as preoperative diagnosis Surgery/Procedure Performed:: 1. Partial excision of bone, second digit, right foot 2. Advancement flap closure, second digit, right foot Description of Surgical Findings:: 1. 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 Successful removal of head of proximal phalanx and partial excision of bone fashion. 3. Advancement flap closure, second digit, right foot Surgeon: Les Reynoso social media coordinator: Mey Cole Type of Anesthesia: General and Local Anesthesiologist: Juan Caban Medications: Per anesthesia Specimen's removed: None Drains: None Estimated Blood Loss (mL): 10 mL Fluids Replaced: Per anesthesia Description of Procedure: Indications For Operation: Mr. Barr is a 63-year-old neuropathic male who was admitted to [facility] for elective right foot surgery consisting of partial excision of bone to the second digit with advancement flap closure. Patient has been suffering from a aggressive callus and pain to the second digit after he underwent nonelective amputation which resulted in more of a shortening of the hallux of the right foot. The patient has recovered from his initial surgery however due to the length and rigidity of his second digit he has been getting breakdown of skin as well as pain to the second digit and has elected to move forward with the above procedure. Patient was seen in my private office and is well-known to my clinic with chart review and consent signed and understands all risk and benefits moving forward with the surgery. Due to rigidity of the second digit the patient has deemed necessary at this time to move forward with the above procedure to help reduce his constant pain. The nature of the problem, anticipated procedures, postop recovery/convalences and risk/complications include but not limited to infection, wound healing complications, digital amputation, hypertrophic scarring, numbness, tingling, chronic pain, CRPS, over and under correction, recurrence of deformity, DVT and or PE and the need for further surgery have been discussed in great detail with the patient. All questions have been answered to the patient's satisfaction. There are no guarantees given as to the outcome of the procedure. Description of Procedure: Under mild sedation, the patient was brought into the operating room and placed on the operating table in supine position. Once the patient was under general anesthesia with laryngeal mask airway, the right lower extremity was blocked using approximately 10 cc 0.5% Marcaine plain. Next, a well-padded calf tourniquet was applied to the right lower extremity. Next, the right lower extremity was prepped and draped in normal aseptic manner. Next, a timeout was then undertaken verifying the correct patient, extremity, visibility of preoperative markings, availability of the equipment. Next, attention was directed to the right lower extremity. Using a 4 inch Esmarch, right lower extremity was exsanguinated and elevated to 60 degrees for 1 minute. Procedure #1: partial excision of bone, second digit, right foot Next, attention was directed to the right second digit. Using a sterile skin marker a trapdoor type incision was marked out encompassing the proximal interphalangeal joint and distal aspect of the toe at 90 degrees. Using a #15 blade and pickup the incision was made along the skin marking down to bone. Care was taken not to skive the incision. Using a pickup the intermediate and distal phalanx as well as the toenail will disarticulated and removed and passed the back table to be discarded. There showed evidence of previous K wire insertion with evidence of hole through the head of the proximal phalanx as well as metallosis to the skin which was removed. Next, using a sagittal saw and #412 blade, partial excision of bone was done at the distal third of the head of the proximal phalanx of the second digit. After the osteotomy was performed the bone was sharply dissected and passed the back table to be discarded. Next, attention was directed to the second metatarsophalangeal joint, using a [place] blade a percutaneous release of the second metatarsophalangeal joint capsule was done and showed to reduce the contracture from a varus tilt to more of a neutral fashion. Procedure #2: Advancement flap closure, second digit, right foot Next, the right calf tourniquet was deflated and reperfusion was noted to the right lower extremity. Next, using a 15 blade and pickup, the distal tuft of the second digit was remodeled. The skin showed to be well coapted went closed manually at the time on the operating table. All bleeders were cauterized as necessary. All incisions were flushed with copious normal saline. Advancement flap closure was performed first to the subcutaneous layer using 3-0 Vicryl in buried suture technique. Next the skin was reapproximated and closed using 3-0 nylon in simple interrupted suture technique. Next 1 cc of via flow was administered throughout all the incisions to aid in healing. The right lower extremity was wiped clean and patted dry. All incisions were dressed with Betadine soaked Adaptic, parachute was applied around the second digit and held in place with Steri-Strips to allow the second digit to be in a more rectus fashion, dry sterile dressing and a single layer Edwards compression bandage was donned to the right lower extremity. The patient tolerated the procedure and anesthesia well and apparent satisfactory condition and was transported to the PACU for further monitoring prior to discharge home. Vital signs stable and vascular status intact to all digits bilateral. Post Operative Plan: Weightbearing: Partial weightbearing with surgical shoe to heel right foot, full weightbearing left lower extremity Antibiotics: 3 g Ancef through the IV DVT Prophylaxis: None needed Dickey: None Dressing: Betadine soaked Adaptic, dry sterile dressing single layer Edwards compression bandage to right lower extremity. X-Rays: Post-operative films taken on the operating room. Pain Medication: Follow-up: Patient will follow-up with Dr. Reynoso in private office 2 weeks after surgery. Grafts/Implants Used: Fastly via flow 1 cc Complications None Admit VTE Documentation VTE Present on Admission: No VTE Mechan Device Prophylaxis: SCD's VTE Pharm Prophylaxis ordered?: No Reason prophylaxis not ordered:: Procedure Not Indicated
[2023-12-18] MEDS: Cefazolin 3 GM in 0.9% Normal Saline (100mL Bag) 100 ML IV (08:50)
--- NOTE | 2023-12-18 08:50 | RAD_ITS ---
STUDY: X-RAY RIGHT FOOT, SECOND TOE REASON FOR EXAM: Male, 63 years old. Amputation. TECHNIQUE: Intraoperative imaging provided for amputation of the second toe. COMPARISON: None. FINDINGS: There is amputation of the distal phalanx of the second toe. RAD/Toe(s) Min 2 Views IMPRESSION: Amputation of the distal phalanx of the second toe. Electronically Signed: Juan Jose Burnham MD at 12:49 EDT ,
[2023-12-18] MEDS: Bupivacaine Mpf 0.5% 30 ML VIAL (09:26)
== END 2023-12-18 11:10 | disposition home or self-care (01) ==
LOC: SDC 06:58 → AC 06:59
PROVIDERS: PCP Family Medicine; Referring Provider Podiatrist Foot & Ankle Surgery; Visit Provider Podiatrist Foot & Ankle Surgery
PROC: (CPT 28292; principal; 2023-12-18 08:45)
DX: M20.41 Other hammer toe(s) (acquired), right foot (principal); G83.4 Cauda equina syndrome; M25.774 Osteophyte, right foot; S91.214A Laceration without foreign body of right lesser toe(s) with damage to nail, initial encounter; X58.XXXA Exposure to other specified factors, initial encounter; I10 Essential (primary) hypertension; F32.A Depression, unspecified; F41.9 Anxiety disorder, unspecified; F17.290 Nicotine dependence, other tobacco product, uncomplicated; R39.14 Feeling of incomplete bladder emptying; Z79.899 Other long term (current) drug therapy
CPT/HCPCS: 14040; 28124; 01480; 73660; 76000; 82962; J7120; J2405; J3475

== ENCOUNTER 2024-02-03 09:36 | Emergency (ER) | payer BC, SELFPAY ==
[2024-02-03 09:37] VITALS: BP 161/75; PULSE 73; RESP 18; TEMP 35.5; O2SAT 100; BMI 36.9
--- NOTE | 2024-02-03 10:46 | EDS_ITS ---
HPI History of Present Illness Chief Complaint: Back Narrative Narrative: 63-year-old male presenting with left lower back pain. Patient states is not new. He states he had a foot problem was wearing a postop shoe and this eventually made his back hurt. He is no longer wearing the postop shoe but his back is hurting and is worse today than it was yesterday. Patient has oxycodone at home and is on baclofen from his previous surgery and this is not helping. Denies loss of bladder or bowel control. Denies saddle anesthesia or paresthesia. He points to one area on the left lumbar paraspinal musculature which hurts. He has tried massage at home. 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 Gastric reflux Herpes History of DVT (deep vein thrombosis) History of echocardiogram HTN (hypertension) Leg cramps Neuropathy Osteomyelitis of great toe of right foot Prostate disease Radiculopathy Wears glasses Home Medications sertraline 50 mg tablet 25 mg PO DAILY 06/26/21 [History Last Taken 12/17/23] baclofen 10 mg tablet 10 mg PO BID PRN muscle spasm/pain #180 tabs 12/04/21 [Rx Last Taken 12/17/23] valacyclovir 1 gram tablet 1,000 mg PO BID #180 tabs 12/19/21 [Rx Last Taken 12/17/23] hydrochlorothiazide 25 mg tablet 25 mg PO DAILY 06/14/23 [History Last Taken 12/17/23] tamsulosin 0.4 mg capsule 0.4 mg PO QHS 06/14/23 [History Last Taken 12/17/23] calcium carbonate (Tums) 200 mg PO DAILY PRN dyspepsia 12/13/23 [History Last Taken Unknown] ascorbic acid (vitamin C) 1,000 mg tablet (Vitamin C) 1 g PO DAILY 90 days #90 tabs 12/18/23 [Rx Last Taken Unknown] aspirin 81 mg tablet,delayed release 81 mg PO DAILY 30 days #30 tabs 12/18/23 [Rx Last Taken Unknown] calcium carbonate 500 mg-vitamin D3 15 mcg (600 unit) tablet (Os-Ifeanyi 500 + D3) 1 tab PO DAILY 90 days #90 tabs 12/18/23 [Rx Last Taken Unknown] docusate sodium 100 mg capsule (Colace) 100 mg PO DAILY 10 days #10 caps 12/18/23 [Rx Last Taken Unknown] omeprazole magnesium 20 mg tablet,delayed release (Prilosec OTC) 20 mg PO DAILY 12/18/23 [History Last Taken Unknown] oxycodone-acetaminophen 5 mg-325 mg tablet (Percocet) 1 tab PO Q6H PRN pain 7 days #28 tabs 12/18/23 [Rx Last Taken Unknown] oxycodone 5 mg capsule 5 mg PO Q6H PRN pain 3 days #12 caps 02/03/24 [Rx Last Taken Unknown] tizanidine 4 mg capsule (Zanaflex) 4 mg PO QHS PRN muscle spasticity #20 caps 02/03/24 [Rx Last Taken Unknown] Allergy/AdvReac Type Severity Reaction Status Date / Time No Known Allergies Allergy Verified 02/03/24 09:55 Family History Other Cancer Diabetes Heart disease Surgical History History of surgery on lower extremity History of toe surgery Social History Smoking Status: Former smoker Tobacco: How many years used: 5 second hand exposure: No alcohol intake: current alcohol intake frequency: a few times a week substance use type: does not use ROS ROS ED Constitutional Constitutional ED: Denies chills, fever(s) or sweats Eyes Eyes: Denies blurry vision or change in vision ENT ENT ED: Denies ear pain or sore throat Cardiovascular Cardiovascular: Denies chest pain, palpitations or racing heartbeat Respiratory/Chest Respiratory/Chest: Denies cough, dyspnea or sputum Gastrointestinal Gastrointestinal: Denies abdominal pain, constipation, diarrhea, nausea or vomiting Genitourinary Genitourinary ED: Denies dysuria, hematuria or urinary frequency Musculoskeletal Musculoskeletal: Reports back pain; Denies arthralgias, myalgias or neck pain Integumentary Denies abscess, Abrasions or rash Neurologic Neurologic: Denies headache(s), paresthesias or weakness Psychiatric Psychiatric: Denies anxiety, depression, suicidal ideation or suicidal thoughts Endocrine Endocrinology: Denies polydipsia or polyuria EXAM Physical Exam Const Vital Signs: 02/03/24 09:37 02/03/24 13:37 Temperature 96 F L Temperature Source Temporal Pulse Rate 73 70 Respiratory Rate 18 16 Blood Pressure 161/75 H 135/73 H Blood Pressure Mean 103 93 Pulse Ox 100 99 Oxygen Delivery Method Room Air Room Air Positive well nourished HEENT Reports moist mucous membranes Eyes PERRL and EOMs intact bilaterally Resp normal respiratory effort Cardio regular rate and regular rhythm GI normal to inspection, nondistended, normoactive bowel sounds Back/Spine Back/Spine Narrative: There is a focal area of paraspinal musculature tenderness Extremity normal to inspection Neuro oriented x3 Sensorium / Orientation: alert Psych mental status grossly normal MDM MDM MDM Narrative Medical decision making narrative: Pain to palpation over the left lumbar paraspinal musculature. This is very lateral and adjacent to the spine. At 1 focal area where he is been rubbing. He thinks he has a spasm here. X-rays of lumbar spine are obtained. Patient given 60 of IM Norflex and 15 of IM Toradol. Will reevaluate. Patient is already taken an oxycodone and baclofen at home earlier this morning at 7 AM. X-rays of the lumbar spine on my interpretation degenerative changes with nothing acute. Radiology interprets this agrees. After reevaluating him after Norflex and Toradol he still having some pain he states he went from an 8 to a 7.5. Patient was given a shot of IM morphine. We discussed the results of his x-ray. Will reevaluate. Patient was discharged home evaluation the patient states he is down to a 7. I counseled him that he should follow-up with his primary care physician. You w ill probably need physical therapy. We discussed his history of cauda equina syndrome which she states was an infectious source and was not surgical and he is not having any symptoms consistent with that. Patient given prescription for pain medicine and muscle relaxers for home discharge stable condition. Impression: 1. Back pain Radiography Diagnostic Testing: Clinical Impression(s) from Imaging Studies Lumbar Spine X-Ray 02/03/24 11:15 IMPRESSION: Degenerative changes of the spine, as detailed above. Electronically Signed: Juan Jose Burnham MD at 11:32 EDT , Discharge Plan Triage Chief Complaint: Back ED Provider: Angel Burks Dx/Rx/DC Orders Instructions: ED Back Pain (Acute or Chronic) Prescriptions: New tizanidine [Zanaflex] 4 mg capsule 4 mg PO QHS PRN (Reason: muscle spasticity) Qty: 20 0RF oxycodone 5 mg capsule 5 mg PO Q6H PRN (Reason: pain) 3 Days Qty: 12 0RF No Action sertraline 50 mg tablet 25 mg PO DAILY tamsulosin 0.4 mg capsule 0.4 mg PO QHS Patient Comments: take 2 capsules by mouth at bedtime hydrochlorothiazide 25 mg tablet 25 mg PO DAILY Patient Comments: take 1 tablet by mouth once daily calcium carbonate [Tums] 200 mg calcium (500 mg) tablet,chewable 200 mg PO DAILY PRN (Reason: dyspepsia) omeprazole magnesium [Prilosec OTC] 20 mg tablet,delayed release (DR/EC) 20 mg PO DAILY oxycodone-acetaminophen [Percocet] 5-325 mg tablet 1 tab PO Q6H PRN (Reason: pain) 7 Days Qty: 28 0RF aspirin 81 mg tablet,delayed release (DR/EC) 81 mg PO DAILY 30 Days Qty: 30 0RF docusate sodium [Colace] 100 mg capsule 100 mg PO DAILY 10 Days Qty: 10 0RF calcium carbonate-vitamin D3 [Os-Ifeanyi 500 + D3] 500 mg-15 mcg (600 unit) tablet 1 tab PO DAILY 90 Days Qty: 90 0RF ascorbic acid (vitamin C) [Vitamin C] 1,000 mg tablet 1 g PO DAILY 90 Days Qty: 90 0RF baclofen 10 mg tablet 10 mg PO BID PRN (Reason: muscle spasm/pain) Qty: 180 0RF Patient Comments: PT STATES HE HAS ONLY BEEN TAKING 1XD QAM valacyclovir 1 gram tablet 1,000 mg PO BID Qty: 180 0RF Primary Care Provider: Per Truong Referrals: Per Truong MD [Primary Care Provider] - Disposition Disposition: Home, Self Care
--- NOTE | 2024-02-03 11:15 | RAD_ITS ---
STUDY: X-RAY - LUMBAR SPINE REASON FOR EXAM: Male, 63 years old. Left-sided back pain and spasm. TECHNIQUE: 3 view(s) of the lumbar spine were obtained. COMPARISON: None FINDINGS: Normal lumbar lordosis. There is no substantial scoliosis. There is a normal alignment of the vertebrae. There is multilevel endplate spondylosis of the lumbar vertebrae. There is multi-level degenerative disc disease with multi-level disc space narrowing. Facet joint osteoarthritis. The soft tissue structures are unremarkable. RAD/Lumbar Spine 2 or 3 Views IMPRESSION: Degenerative changes of the spine, as detailed above. Electronically Signed: Juan Jose Burnham MD at 11:32 EDT ,
[2024-02-03] MEDS: Orphenadrine 60 MG/2 ML Ampul IM (11:26)
[2024-02-03] MEDS: Ketorolac 15 MG/ML Vial IM (11:26)
[2024-02-03] MEDS: Morphine 4 MG/ML Syringe IM (12:28)
[2024-02-03 13:37] VITALS: BP 135/73; PULSE 70; RESP 16; O2SAT 99
== END 2024-02-03 14:50 | disposition home or self-care (01) ==
PROVIDERS: Emergency Provider Student in an Organized Health Care Education/Training Program; PCP Family Medicine; Visit Provider Student in an Organized Health Care Education/Training Program
DX: M54.50 Low back pain, unspecified (principal); X58.XXXA Exposure to other specified factors, initial encounter; I10 Essential (primary) hypertension; Z79.82 Long term (current) use of aspirin; Z79.899 Other long term (current) drug therapy; Z87.891 Personal history of nicotine dependence
CPT/HCPCS: 72100; 96372; 99282

== ENCOUNTER → 2024-02-19 | Outpatient (CLI) | payer BC, SELFPAY ==
--- NOTE | 2024-02-19 13:32 | MRI_ITS ---
STUDY: MRI LUMBAR SPINE WITHOUT CONTRAST REASON FOR EXAM: Male, 63 years old. pain history or cauda equina TECHNIQUE: Standardized fat and water weighted pulse sequences were obtained in the sagittal and axial planes. COMPARISON: Lumbar spine x-rays February 03, 2024 FINDINGS: T12-L1: Normal endplates. Normal disc height, hydration and morphology. Normal bilateral facet joints. Normal central canal and bilateral lateral recesses. Normal bilateral intervertebral neural foramina. Normal lumbar lordosis. There is no substantial scoliosis. Normal conus medullaris that terminates at L1 L1-2: Normal endplates. Normal disc height, desiccation and mild annular bulge with moderate sized left posterolateral/foraminal disc protrusion. Mild facet arthropathy. Normal central canal and bilateral lateral recesses. Minor right neural foraminal stenosis and moderate narrowing on the left. L2-3: Normal endplates. Normal disc height, desiccation mild annular bulge.. Mild facet arthropathy.. Normal central canal and bilateral lateral recesses. Moderate bilateral neural foraminal encroachment L3-4: Minor endplate spurring. Normal disc height, desiccation and mild to moderate annular bulge. Facet arthropathy and thickening of ligamenta flava slightly more pronounced on the right.. Normal central canal and bilateral lateral recesses. Moderate left neural foraminal stenosis and more severe narrowing on the right. L4-5: Minor endplate spurring. Narrowed disc height, desiccation and minor and spurring with large sized left posterolateral/foraminal disc extrusion with inferior posterior migration of disc fragment. Facet arthropathy and thickening of ligamenta flava. Normal central canal moderate left lateral recess stenosis and severe bilateral neural foraminal stenosis worse on the right exaggerated by shortened pedicles L5-S1: Normal endplates. Normal disc height, desiccation and minor annular bulge with tiny central disc protrusion.. Facet arthropathy and mild thickening of ligamenta flava more severe on the left. Normal central canal and bilateral lateral recesses. Moderate bilateral neural foraminal stenosis Normal visualized sacral ala. Normal visualized paraspinous soft tissue structures. No significant change given inherent differences in imaging modalities. MRI/Spine Lumbar (Routine) IMPRESSION: No evidence for acute fracture or other significant bony pathology. Multilevel spinal stenosis secondary to disc disease and bony hypertrophy most severe at L3-4 and L4-5 with findings as above. Electronically Signed: Jb Reyes MD at 16:28 EDT ,
--- NOTE | 2024-02-19 13:32 | MRI_ITS ---
STUDY: MRI THORACIC SPINE WITHOUT CONTRAST REASON FOR EXAM: Male, 63 years old. [employer] [employer] xrays TECHNIQUE: Standardized fat and water weighted pulse sequences were obtained in the sagittal and axial planes. COMPARISON: None. FINDINGS: Normal kyphosis of the thoracic spine. There is no substantial scoliosis. No evidence for acute fracture or other significant bony pathology. There is mild multilevel disc space narrowing and disc degeneration.. There is a left foraminal disc protrusion at T11-12 creating severe left neural foraminal stenosis There is a tiny central disc protrusion at T7-8 without spinal stenosis Normal visualized thoracic cord. Normal conus medullaris that terminates at L1 The soft tissue structures are unremarkable. MRI/Spine Thoracic (Routine) IMPRESSION: Spondylosis and multilevel disc degeneration.. Severe left neural foraminal stenosis at T11-12 secondary to left foraminal disc protrusion. Tiny central disc protrusion at T7-8 without significant spinal stenosis Electronically Signed: Jb Reyes MD at 16:33 EDT ,
== END | disposition home or self-care (01) ==
LOC: MRI 13:29
PROVIDERS: PCP Family Medicine; Referring Provider Family Medicine; Visit Provider Family Medicine
DX: G83.4 Cauda equina syndrome (principal)
CPT/HCPCS: 72146; 72148

== ENCOUNTER → 2024-08-11 | Outpatient (CLI) | payer BC, SELFPAY ==
[2024-08-11 17:43] LABS: Absolute Lymphocyte Count 1.79 X10^3/uL (0.83-4.51); Absolute Neutrophil Count 4.9 X10^3/uL (2.0-7.7); Basophil# 0.05 X10^3/uL; Basophil% 0.6 % (0-1); Eosinophil# 0.39 X10^3/uL; Eosinophils% 4.9 % (0-5); Hematocrit 41.7 % (40-54); Lymphocyte # 1.79 X10^3/ul (0.83-4.51); Lymphocyte % 22.5 % (19-41); Mean Corp Hgb Conc 33.6 g/dL (32-36); Mean Corpuscular Hgb 29.7 pg (27.0-32.0); Mean Corpuscular Volume 88.5 fL (80-94); Mean Platelet Vol. 9.5 fl (6.2-12.0); Monocyte% 10.1 % (0-10); NRBC Flagged by Analyzer 0 % (0-5); Neutrophil # 4.91 X10^3/uL (2.7-7.7); Neutrophil % 61.8 % (47-70); Platelet Count 294 K/mm3 (150-450); RBC Distribution Width CV 12.7 % (11.6-14.6); RBC Distribution Width SD 41.1 fl (35.1-43.9); Red Blood Count 4.71 M/mm3 (4.6-6.2)
[2024-08-11 18:01] LABS: ALB/GLOB Ratio 1.1 RATIO (0.9-2.4); AST(SGOT) 33 U/L (15-37); Alanine Aminotransfer ALT/SGPT 37 U/L (16-61); Albumin, Serum 3.7 g/dL (3.2-5.0); Alkaline Phosphatase 96 U/L (45-117); Anion Gap 9 (5-15); BUN 19 mg/dL (7-18); BUN/Creat Ratio 13.9 RATIO (10-20); Calcium,Total 9.1 mg/dL (8.5-10.1); Chloride 104 mmol/L (98-107); Cholesterol 203 mg/dL (200); Creatinine, Serum 1.37 mg/dL (0.70-1.30); EST Glomerular Filtration Rate 56 mL/min (>60); Est Glom Filt Rate - Afr Amer 68 mL/min (>60); Globulin 3.5 g/dL (2.2-4.2); Glucose 102 mg/dL (74-106); High Density Lipoprotein 38 mg/dL; Potassium 3.4 mmol/L (3.5-5.1); Protein, Total 7.2 g/dL (6.4-8.2); Sodium Level 138 mmol/L (136-145); Triglycerides 195 mg/dL; Very Low Density Lipoprotein 39 mg/dL (5-40)
== END | disposition home or self-care (01) ==
LOC: MFPLAB 14:09
PROVIDERS: PCP Family Medicine; Visit Provider Family Medicine
DX: I10 Essential (primary) hypertension (principal)
CPT/HCPCS: 36415; 80053; 80061; 85025

== ENCOUNTER → 2024-08-20 | Outpatient (CLI) | payer BC, SELFPAY ==
[2024-08-20 15:15] LABS: Anion Gap 8 (5-15); BUN 26 mg/dL (7-18); BUN/Creat Ratio 21.5 RATIO (10-20); Calcium,Total 9.2 mg/dL (8.5-10.1); Chloride 103 mmol/L (98-107); Creatinine, Serum 1.21 mg/dL (0.70-1.30); EST Glomerular Filtration Rate 65 mL/min (>60); Est Glom Filt Rate - Afr Amer 78 mL/min (>60); Glucose 99 mg/dL (74-106); Potassium 3.4 mmol/L (3.5-5.1); Sodium Level 136 mmol/L (136-145)
== END | disposition home or self-care (01) ==
LOC: MFPLAB 11:24
PROVIDERS: PCP Family Medicine; Visit Provider Family Medicine
DX: I10 Essential (primary) hypertension (principal)
CPT/HCPCS: 36415; 80048

== ENCOUNTER → 2025-01-13 | Outpatient (CLI) | payer BC, SELFPAY ==
[2025-01-13 18:47] LABS: PSA,Total - Annual Screen 0.71 ng/mL (0.02-4.00)
== END | disposition home or self-care (01) ==
LOC: MFPLAB 15:26
PROVIDERS: PCP Family Medicine; Referring Provider Family Medicine; Visit Provider Family Medicine
DX: Z12.5 Encounter for screening for malignant neoplasm of prostate (principal)
CPT/HCPCS: 36415; 84153; G0103

== ENCOUNTER → 2025-08-12 | Outpatient (CLI) | payer BC, SELFPAY ==
[2025-08-12 12:47] LABS: Anion Gap 12 (5-15); BUN 22 mg/dL (4-19); BUN/Creat Ratio 19.3 RATIO (10-20); Calcium,Total 9.5 mg/dL (7.6-11.0); Carbon Dioxide 23.3 mmol/L (21.0-32.0); Chloride 102 mmol/L (98-108); Glucose 112 mg/dL (70-99); Potassium 3.6 mmol/L (3.3-5.1)
== END | disposition home or self-care (01) ==
LOC: MFPLAB 10:13
PROVIDERS: PCP Family Medicine; Visit Provider Family Medicine
DX: E87.6 Hypokalemia (principal)
CPT/HCPCS: 36415; 80048